=== PATIENT | male | born 1950 | race Caucasian/White ===

== ENCOUNTER 2024-07-21 15:27 | Emergency (ER) | payer MEDICARE, BC, SELFPAY ==
[2024-07-21 15:32] VITALS: BP 154/76; PULSE 81; RESP 19; TEMP 36.7; O2SAT 100
--- OUTSIDE RECORDS SUMMARY | 2024-07-21 16:17 | XMS_ITS | Clinical Summary ---
Author Organization [facility] Address Formerly [facility] [place] [address] Care Team Providers Care Surgical Appliance Fitter Name Role Phone Olayinka John MD Primary Care Provider [phone] Allergies No known active allergies Medications aspirin 81 MG tablet Take 1 tablet (81 mg total) by mouth daily. Active coenzyme Q-10 (CO Q-10) 100 MG capsule Take 1 capsule (100 mg total) by mouth daily. Active ALPRAZolam (XANAX) 0.25 MG tabletIndications:Anxie ty Take 1 tablet (0.25 mg total) by mouth 3 (three) times daily as needed for Sleep. 30 tablet 023 Active famotidine (PEPCID) 20 MG tablet Take 1 tablet (20 mg total) by mouth daily. 14 tablet 024 Active EPINEPHrine 0.3 MG/0.3ML injectionIndications:Al lergic reaction, subsequent encounter Inject 0.3 mLs (0.3 mg total) into the muscle as needed for Anaphylax is. 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 30 tablet 5 025 Active amLODIPine (NORVASC) 10 MG tabletIndications:Pure hypercholesterolemia TAKE 1 TABLET(10 MG) BY MOUTH DAILY 90 tablet 3 025 Active naproxen (NAPROSYN) 500 MG tabletIndications:Other chronic pain Take 1 tablet (500 mg total) by mouth 2 (two) times daily with meals. 60 tablet 1 025 Active semaglutide-weight management (WEGOVY) 1.7 mg/dose injection (PEN)Indications:Weight Loss Inject 1.7 mg into the skin once a week. Indicatio ns: Weight Loss 3 mL 3 025 Active oxyCODONE ER (OXYCONTIN) 60 MG 12 hr abuse-deterrent tabletIndications:Chron ic Pain Take 1 tablet (60 mg total) by mouth 3 (three) times daily. Indicatio ns: Chronic Pain 90 tablet 025 Active amLODIPine (NORVASC) 10 MG tabletIndications:Pure hypercholesterolemia TAKE 1 TABLET(10 MG) BY MOUTH DAILY 90 tablet 3 024 2024 Discontinued naproxen (NAPROSYN) 500 MG tabletIndications:Other chronic pain TAKE 1 TABLET(50 0 MG) BY MOUTH EVERY 12 HOURS 60 tablet 1 024 2024 Discontinued(R eorder) semaglutide-weight management (WEGOVY) 1.7 mg/dose injection (PEN)Indications:Weight Loss Inject 1.7 mg into the skin once a week. Indicatio ns: Weight Loss 3 mL 3 025 2024 Discontinued(R eorder) oxyCODONE ER (OXYCONTIN) 60 MG 12 hr abuse-deterrent tabletIndications:Chron ic Pain Take 1 tablet (60 mg total) by mouth 3 (three) times daily. Indicatio ns: Chronic Pain 90 tablet 025 2024 Discontinued(R eorder) azithromycin (ZITHROMAX Z-HARITHA) 250 MG tabletIndications:URI (upper respiratory infection) Take 2 tablets by mouth on day one then 1 daily for four days. 6 tablet 025 2024 Active Problems Problem Noted Date Diagnosed Date Arrhythmia 12/24/2021 Class 1 obesity due to exces s calories with serious comorbidity and body mass index (BMI) of 31.0 to 31.9 in adult 12/23/2021 Lumbar radiculopathy 09/10/2020 Lumbar facet arthropathy 06/22/2020 Status post total replacement of left hip 2019 BMI 35.0-35.9,adult 09/06/2017 Thyromegaly 12/28/2015 Primary osteoarthritis of left shoulder 06/11/19 16 Obstructive sleep apnea syndrome 05/15/2014 Insomnia 05/23/2013 Chronic pain 05/15/2012 Benign essential hypertension 04/06/2012 Hyperlipidemia 04/06/2012 Gastroesophageal reflux disease 02/15/2012 Depression 01/30/2012 Resolved Problems Problem Noted Date Diagnosed Date Resolved Date Screening for colon cancer 03/19/2024 1 05/25/2023 Encounter for colonoscopy du e to history of adenomatous colonic polyps 03/19/2024 03/25/2024 Encounters Date Type Department Care Team Description 07/15/2024 Telephone [facility] Internal [address] [address] Olayinka John MD Information 07/08/2024 [facility] Internal [address] [address] Olayinka John MD Refill Request 07/02/2024 [facility] Internal [address] [address] Olayinka John MD Prior Authorization (Osomeprazole magnesium 40mg DR capsules) 07/01/2024 [facility] Internal [address] [address] Olayinka John MD Refill Request 06/05/2024 [facility] Internal [address] [address] Olayinka John MD Prior Authorization ( oxyCODONE ER (OXYCONTIN) 60 MG 12 hr abuse-deterrent tablet ) 06/03/2024 Scan [facility] Scanned, [facility] 05/24/2024 Telephone [facility] Internal [address] [address] Olayinka John MD Lab Results 05/21/2024 1:20 PM CLINICAL STAFF ANESTHESIOLOGIST Office Visit [facility] Internal [address] [address] Olayinka John MD Hypertension; Hyperlipidemia; Obesity; GERD 05/21/2024 - 05/21/2024 11:59 PM CLINICAL STAFF ANESTHESIOLOGIST Hospital Encounter [facility] [address] [place] [address] Olayinka John MD Discharge Disposition: Home or Self Care (Routine Discharge) 05/21/2024 Travel 05/10/2024 Telephone [facility] Internal [address] [address] Olayinka John MD Forms (Paper Products Supervisor services department) 04/25/[address] [address] Olayinka John MD Medication Request from Last 3 Months Immunizations Name Administration Dates Next Due Fluzone High Dose (IIV, triv alent, 0.5mL) 02/20/2024 Fluzone High Dose - >Age 65 (Prefilled Syringe) 02/24/2021,02/20/2020,03/02/2019,2017,03/15/2017 Influenza (Generic) 02/20/2020,03/02/2019,2016 Influenza Adult (Generic) 03/04/2022,,02/20/2020,2018,03/15/2017 MODERNA COVID-19 BIVALENT (1 2+), MRNA, LNP-S, PF 03/04/2022 MODERNA COVID-19 (12+) MRNA, LNP-S, PF, 100 MCG/ 0.5 ML DOSE 03/04/2022,02/25/2021,07/01/2020,2020 PFIZER COVID-19 (12+) MRNA, LNP-S, PF, IZABELLA-SUCROSE, 30 MCG/0.3 ML (COMIRNATY) 02/20/2024 Pneumococcal (Pneumovax 23) 03/15/2018 Pneumococcal (Prevnar 13) 03/15/2017 Social History Tobacco Use Types Packs/Day Years Used Date Smoking Tobacco: Every Day Cigarettes 1 58.2 Started: 1965 Smokeless Tobacco: Never Tobacco Cessation:Ready to Q uit: No; Counseling Given: Yes Comments:Recommended smoking cessation as well as benefits of giving up smoking with patient; provider to careers counsellor Alcohol Use Standard Drinks/Week Comments Not Currently 3.3 (1 standard drin k = 0.6 oz pure alcohol) 2 beers a week // as of May 2024 has quit drinking AUDIT-C Answer Date Recorded Frequency of Alcohol Consumption Never 04/10/2019 Average Number of Drinks Not asked 019 Frequency of Binge Drinking Not asked 03/31 PHQ-2 Answer Date Recorded Patient Health Questionnaire-2 Score 0 05/21/2024 Sex and Gender Information Value Date Recorded Sex Assigned at Male 03/15/2018 10:58 AM CLINICAL STAFF ANESTHESIOLOGIST Legal Sex Male 7:04 PM CDT Gender Identity Male 03/15/2018 10:58 AM CLINICAL STAFF ANESTHESIOLOGIST Sexual Orientation Straight 03/15/2018 10 :58 AM CLINICAL STAFF ANESTHESIOLOGIST 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 Not on file Not on file Last Filed Vital Signs Vital Sign Reading Time Taken Comments Blood Pressure 152/76 05/21/2024 1:29 PM CLINICAL STAFF ANESTHESIOLOGIST Pulse 70 05/21/2024 1:29 PM CLINICAL STAFF ANESTHESIOLOGIST Temperature 37 C (98.6 F) 05/21/2024 1:29 PM CLINICAL STAFF ANESTHESIOLOGIST Respiratory Rate 16 05/21/2024 1:29 PM CLINICAL STAFF ANESTHESIOLOGIST Oxygen Saturation 95% 05/21/2024 1:29 PM CLINICAL STAFF ANESTHESIOLOGIST Inhaled Oxygen Concentration - - Weight 107.5 kg (237 lb 1.6 oz) 05/21/2024 1:29 PM CLINICAL STAFF ANESTHESIOLOGIST Height 185.4 cm (6' 1 ) 05/21/2024 1:29 PM CLINICAL STAFF ANESTHESIOLOGIST Body Mass Index 31.28 05/21/2024 1:29 PM CLINICAL STAFF ANESTHESIOLOGIST Plan of Treatment Upcoming Encounters Date Type Department Care Team (Late st Contact Info) Description 08/29/2024 1:30 PM CDT Hospital Encounter [facility] [place] [address] Shaun Frost MD [address] [address] 08/29/2024 1:30 PM CDT - 08/29/2024 2:00 PM CDT Surgery [facility] [address] Shaun Frost MD [address] [address] COLONOSCOPY 11/19/2024 1:20 PM CDT Office Visit [facility] - [address] [address] Olayinka John MD [address] [place] [address] Scheduled Procedures Name Priority Associated Diagnoses Date/Ti me COLONOSCOPY Screening for colon cancer Encounter for colonoscopy due to history of adenomatous colonic polyps 08/29/2024 1:30 PM CDT Health Maintenance Due Date Last Done Comments Annual Medicare Wellness Visit 09/15/2021 09/14/2020 COVID-19 Vaccine ( season) 2024 02/20/2024, 03/04/2022, 03/04/2022, Additional history exists DTaP, Tdap and Td Vaccines (1 - Tdap) 02/04/2025 Postponed from 1970 (Patient Refused) Zoster Vaccines (1 of 2) 02/04/2025 Pos tponed from 2001 (Patient Refused) Lung Cancer Screening 07/19/2025 07/19/2024 RSV Immunization or 60+ Years (1 - 1-dose 75+ series) 2026 Colorectal Cancer Screening Colonoscopy (10 Years) 05/20/2029 05/20/2019 Hepatitis C 02/04/2054 Postponed from 1969 (Patient Refused) Pneumococcal Vaccine: 65+ Years Completed 03/15/2018, 03/15/2017 Influenza Adult Completed 02/20/2024, 07/2021, 02/24/2021, Additional history exists PHQ-2 (Physician [place]) Completed 05/21/2024 AAA SCREENING Completed 07/19/2024, 06/30, 10/06/2020, Additional history exists Meningococcal B Vaccine Aged Out No l onger eligible based on patient's age to complete this topic Meningococcal Vaccine Aged Out No jackson wily eligible based on patient's age to complete this topic RSV Immunizations Under 20 Months Aged Out No longer eligible based on patient's age to complete this topic Procedures Procedure Name Priority Date/Time Associated Diagnosis Comments COLLECTION VENOUS BLOOD VENIPUNCTURE Routine 05/21/2024 2:24 PM CLINICAL STAFF ANESTHESIOLOGIST Benign essential hypertension Pure hypercholesterolemia LIPID PANEL Routine 05/21/2024 2:24 PM CLINICAL STAFF ANESTHESIOLOGIST Benign essential hypertension Pure hypercholesterolemia COMPREHENSIVE METABOLIC PANEL Routine 05/21/2024 2:24 PM CLINICAL STAFF ANESTHESIOLOGIST Benign essential hypertension Pure hypercholesterolemia CK (CPK) Routine 05/21/2024 2:24 PM CLINICAL STAFF ANESTHESIOLOGIST Benign essential hypertension Pure hypercholesterolemia US AORTA Routine 10/06/2020 3:32 PM CDT Screening for AAA (abdominal aortic aneurysm) COLONOSCOPY GENERIC (SCAN ORDER) Routine 05/20/2019 10:04 AM CLINICAL STAFF ANESTHESIOLOGIST from Last 3 Months or Most Recently Relevant to Health Maintenance Results * COMPREHENSIVE METABOLIC PANEL (05/21/2024 2:24 PM CLINICAL STAFF ANESTHESIOLOGIST) [facility] SODIUM S/P/B 142 136 - 145 MMOL/L 05/21/2024 7:39 PM CLINICAL STAFF ANESTHESIOLOGIST [facility] [place] POTASSIUM S/P/B 4.0 3.5 - 5.1 MMOL/L 05/21/2024 7:39 PM [facility] CHLORIDE S/P/B 105 98 - 107 MMOL/L 05/21/2024 7:39 PM [facility] CO2 26.5 21 - 32 MMOL/L 05/21/2024 7:39 PM [facility] GLUCOSE 92 70 - 99 MG/DL 05/21/2024 7:39 PM [facility] BUN 12 7 - 18 MG/DL 05/21/2024 7:39 PM [facility] CREATININE S/P/B 0.75 0.70 - 1.30 MG/DL 05/21/2024 7:39 PM [facility] CALCIUM S/P/B 9.1 8.4 - 10.5 MG/DL 05/21/2024 7:39 PM [facility] BILIRUBIN TOTAL S/P/B 0.4 0.2 - 1.0 MG/DL 05/21/2024 7:39 PM [facility] ALKALINE PHOSPHATASE S/P/B 113 45 - 115 U/L 05/21/2024 7:39 PM [facility] AST 15 15 - 37 U/L 05/21/2024 7:39 PM [facility] ALT 22 16 - 63 U/L 05/21/2024 7:39 PM [facility] TOTAL PROTEIN S/P/B 6.8 6.4 - 8.2 G/DL 05/21/2024 7:39 PM [facility] ALBUMIN S/P/B 4.0 3.4 - 5.0 G/DL 05/21/2024 7:39 PM [facility] ANION GAP 10.5 5 - 15 MMOL/L 05/21/2024 7:39 PM [facility] Comment:REFERENCE RANGE NOT ESTABLISHED OSMOLALITY (CALC) 293 MOSM/KG 025 7:39 PM CLINICAL STAFF ANESTHESIOLOGIST [facility] Comment:REFERENCE RANGE NOT ESTABLISHED GFR ESTIMATE >90 >90 ML/MIN/1. 73 M2 05/21/2024 7:39 PM CLINICAL STAFF ANESTHESIOLOGIST [facility] GFR NOTES GFR REFERENCE S: 05/21/2024 7:39 PM CLINICAL STAFF ANESTHESIOLOGIST [facility] Comment: THE ESTIMATED GFR IS CALCULATED USING THE 2020 CKD-EPI EQUATION. THE FOLLOWING CATEGORIES FOR GRADING RENAL FUNCTION ARE RECOMMENDED BY THE INTERNATIONAL SOCIETY OF NEPHROLOGY (KDIGO 2012 CLINICAL PRACTICE GUIDELINE). G1,NORMAL OR HIGH: >89 ml/min/1.73 m2 G2,MILDLY DECREASED: 60-89 ml/min/1.73 m2 G3A,MILDLY TO MODERATELY DECREASED: 45-59 ml/min/1.73 m2 G3B,MODERATELY TO SEVERELY DECREASED: 30-44 ml/min/1.73 m2 G4,SEVERELY DECREASED: 15-29 ml/min/1.73 m2 G5,KIDNEY FAILURE: <15 ml/min/1.73 m2 05/21/2024 2:24 PM CLINICAL STAFF ANESTHESIOLOGIST us Olayinka John MD LABORATORY Final Result [facility] [address] [place] [address], * (ABNORMAL) LIPID PANEL (05/21/2024 2:24 PM CLINICAL STAFF ANESTHESIOLOGIST) CHOLESTEROL 231(H) <200 MG/DL 05/21/2024 7:39 PM CLINICAL STAFF ANESTHESIOLOGIST [facility] TRIGLYCERIDES 125 <150 MG/DL 05/21/2024 7:39 PM [facility] HDL 48 >40 MG/DL 05/21/2024 7:39 PM [facility] LDL-C 158(H) <100 MG/DL 05/21/2024 7:39 PM CLINICAL STAFF ANESTHESIOLOGIST [facility] VLDL CALCULATION 25 5 - 28 MG/DL 05/21/2024 7:39 PM [facility] CHOL/HDL RATIO 4.8(H) 0.0 - 4.0 05/21/2024 7:39 PM CLINICAL STAFF ANESTHESIOLOGIST [facility] LDL/HDL 3.3(H) 0.41 - 2.13 05/21/2024 7:39 PM CLINICAL STAFF ANESTHESIOLOGIST [facility] NON HDL CHOLESTEROL 183(H) <140 MG/DL 05/21/2024 7:39 PM CLINICAL STAFF ANESTHESIOLOGIST [facility] 05/21/2024 2:24 PM CLINICAL STAFF ANESTHESIOLOGIST Olayinka John MD LABORATORY Final Result [facility] [address] [place] [address], [place] [phone] * CK (CPK) (05/21/2024 2:24 PM CLINICAL STAFF ANESTHESIOLOGIST) CPK 86 39 - 308 U/L 05/22/2024 5:39 PM CLINICAL STAFF ANESTHESIOLOGIST [facility] 05/21/2024 2:24 PM CLINICAL STAFF ANESTHESIOLOGIST Olayinka John MD LABORATORY Final Result [facility] [address] [place] [address], [place] [phone] [id number] * COLONOSCOPY (05/20/2019 10:04 AM CLINICAL STAFF ANESTHESIOLOGIST) us Documents Scanned SCANNING Final Result from Last 3 Months or Most Recently Relevant to Health Maintenance Insurance MEDICARE [facility] Care Teams Surgical Appliance Fitter Relationship Specialty Start Date End Date Olayinka John MD [address] [place] [address] PCP - General INTERNAL MEDICINE 06/15/17
--- OUTSIDE RECORDS SUMMARY | 2024-07-21 16:17 | XMS_ITS | Referral Summary ---
Author Organization [facility] Address [address] [place] [address] Care Team Providers Care Camp Cook Name Role Phone Olayinka John MD Primary Care Provider Martha Masters MD Unavailable Encounters Date Type Department Care Team Description 07/19/2024 9:37 PM CDT - 07/20/2024 12:17 AM CDT Emergency [facility] Emergency Department [address] [place] [id number] Postoperative complication of skin involving drainage from surgical wound (Primary Dx) Discharge Disposition: Discharge to home or self care from Last 3 Months Allergies No known active allergies Medications OXYCONTIN 60 mg tablet,oral only,ext.rel.12 hr Take 1 tablet (60 mg total) by mouth as needed As needed, once every couple of days 0 9 Active aspirin 81 mg enteric coated tablet Take 1 tablet (81 mg total) by mouth daily Active amLODIPine (NORVASC) 10 mg tablet Take 1 tablet (10 mg total) by mouth daily Active esomeprazole DR (NexIUM) 40 mg capsule Take 1 capsule (40 mg total) by mouth daily before breakfast Active acetaminophen (TYLENOL) 325 mg tabletIndicatio ns:Fever,Pain Take 2 tablets (650 mg total) by mouth every 4 (four) hours as needed for pain 10 tablet 2 Active coenzyme Q10 100 mg capsule Take 1 capsule (100 mg total) by mouth daily Active DULoxetine DR (CYMBALTA) 60 mg capsule Take 1 capsule (60 mg total) by mouth daily Active naproxen (NAPROSYN) 500 mg tablet Take 1 tablet (500 mg total) by mouth 2 (two) times a day with meals Active gabapentin (NEURONTIN) 300 mg capsule Take 1 capsule (300 mg total) by mouth daily Active Active Problems Problem Noted Date Diagnosed Date Tinnitus of both ears 09/12/2023 Bilateral impacted cerumen 09/12/2023 Sensorineural hearing loss (SNHL) of both ears 0 09/12/2023 Arrhythmia 12/24/2021 Status post total replacement of left hip 2019 Social History Tobacco Use Types Packs/Day Years Used Date Smoking Tobacco: Former Cigarettes 0.8 40 Tobacco Cessation:Counseling Given: Not Answered Alcohol Use Standard Drinks/Week Comments Not Currently 0 (1 standard drink = 0.6 oz pur e alcohol) AUDIT-C Answer Date Recorded Q1: How often do you have a drink containing alc ohol? 2-4 times a month 06/30/2022 Q2: How many drinks containi ng alcohol do you have on a typical day when you are drinking? 1 or 2 06/30/2022 Q3: How often do you have si x or more drinks on one occasion? Never 06/30/2022 Personal Safety Answer Date Recorded Have you ever been in or are you currently in a harmful physical or emotional relationship or is someone making you feel afraid or unsafe? Denies 07/19/2024 Sex and Gender Information Value Date Recorded Sex Assigned at Not on file Legal Sex Male 2:24 AM [employer] Gender Identity Not on file Sexual Orientation Not on file Occupation Industry Job Start Date Job End Date retired Not on file Not on file Not on file Last Filed Vital Signs Vital Sign Reading Time Taken Comments Blood Pressure 116/74 07/19/2024 11:50 PM CDT Pulse 73 07/19/2024 11:50 PM CDT Temperature 36.7 C (98.1 F) 07/19/2024 7:57 PM CDT Respiratory Rate 16 07/19/2024 11:50 PM CDT Oxygen Saturation 95% 07/19/2024 11:50 PM CDT Inhaled Oxygen Concentration - - Weight 104.3 kg (230 lb) 07/19/2024 7:57 PM CDT Height 185.4 cm (6' 1 ) 07/19/2024 7:57 PM CDT Body Mass Index 30.34 07/19/2024 7:57 PM CDT Plan of Treatment Not on file Medical Devices Implanted 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'S Furnishings Device Identifier Shelf Expiration Date Model / Serial / Lot [employer] Ernie Precision 50cm Trial Linear Straight Tip Preloaded Stylet .014in Sc-2218-50e - [id number] - [id number] Implanted:Qty: 1 on 10/11/2021 by Martha Masters MD at [facility] [place] Stimulator Back [employer] Ernie 08/03/2023 SC-2218-5 0E / [id number] / Description:[employer] C LINEAR ST 70 cm 8 CONTACT TRIAL LEAD KIT; IMPLANT #1; T12-L1 INSERTION LEVEL T7-8 LEAD IMPLANT LEVEL [employer] Ernie Precision 50cm Trial Linear Straight Tip Preloaded Stylet .014in Sc-2218-50e - [id number] - [id number] Implanted:Qty: 1 on 10/11/2021 by Martha Masters MD at [facility] [place] Stimulator Back [employer] Ernie 12/11/2021 SC-2218-5 0E / [id number] / Description:[employer] C LINEAR ST 70 cm 8 CONTACT TRIAL LEAD KIT; IMPLANT #2; T12-L1 INSERTION LEVEL T7-8 LEAD IMPLANT LEVEL [employer] Ernie Precision 50cm Linear Straight Tip Preloaded Enhanced Stylet Sc-2218-50 - [id number] - [id number] Implanted:Qty: 1 on 12/24/2021 by Martha Masters MD at [facility] [employer] Ernie 05/26/2023 SC-2218-5 0 / [id number] / [id number] [employer] Ernie Precision 50cm Linear Straight Tip Preloaded Enhanced Stylet Sc-2218-50 - [id number] - [id number] Implanted:Qty: 1 on 12/24/2021 by Martha Masters MD at [facility] [employer] Ernie 05/11/2023 SC-2218-5 0 / [id number] / [id number] [employer] Ernie Clik X [place] Lead Spinal Cord Stimulation Systems [id number]-4318 - [id number] Implanted:Qty: 1 on 12/24/2021 by Martha Masters MD at [facility] [employer] Ernie 10/14/2022 [id number]-[id number] / / [id number] [employer] Ernie Kit Pulse Generator Wavewriter Alpha 16 Thk10.7mm [id number] - [id number] - [id number] Implanted:Qty: 1 on 12/24/2021 by Martha Masters MD at [facility] Neuro- 09/30/2023 [id number] / [id number] / [id number] Description:NO CHARGE, IN ARGE SYSTEM KIT Procedures Procedure Name Priority Date/Time Associated Diagnosis Comments CT RECON THORACIC AND LUMBAR SPINE WO CONTRAST ED 07/19/2024 10:[address] CHEST ABDOMEN PELVIS W CONTRAST ED 07/19/2024 10:38 PM CDT EGFR STAT 07/19/2024 9:58 PM CDT DIFFERENTIAL AUTO STAT 07/19/2024 9:5 8 PM CDT LACTATE STAT 07/19/2024 9:58 PM CDT COMPREHENSIVE METABOLIC PANEL STAT 07/19/2024 9:58 PM CDT CBC WITH AUTO DIFFERENTIAL STAT 07/19/2024 9:58 PM CDT PSA SCREEN Routine 09/12/2016 11:14 AM CDT from Last 3 Months or Most Recently Relevant to Health Maintenance Results * CT Recon Thoracic and Lumbar Spine WO Contrast (C) (07/19/2024 10:38 PM CDT) Anatomical Region Laterality Modality Spine N/A Computed Tomogra phy 07/19/2024 10:5 8 PM CDT Narrative 07/19/2024 11:29 PM CDT EXAM DESCRIPTION: CT RECON THORACIC AND LUMBAR SPINE WO CONTRAST (C); CT CHEST ABDOMEN PELVIS W CONTRAST REASON FOR STUDY: Wound leaking after spine stimulator placement yesterday PT AMBULATORY TO TRIAGE STATES HE HAD A PAIN STIMULATOR PLACED TO RIGHT LOWER BACK YESTERDAY. PT STATES IT HAS BEEN LEAKING FLUID. NO OBVIOUS DRAINAGE IN TRIAGE. DERMABOND INTAKE. PT STATES HE DOES HAVE A HEADACHE. TECHNIQUE: Contiguous transaxial CT images of the chest, abdomen and pelvis are obtained following uneventful intravenous administration of 100 mL Omnipaque 350. Coronal and sagittal reconstructions were generated and reviewed. Images stored on PACS. Automated exposure control was used as a dose optimization technique for this examination. CT reconstruction scan of the thoracolumbar spine were generated from the source CT images of the chest, abdomen and pelvis following uneventful intravenous administration of 100 mL Omnipaque 350.. Reconstructed axial, coronal and sagittal MPR images reviewed. Images stored on PACS. Automated exposure control was used as a dose optimization technique for this examination. CONTRAST TYPE/DOSE: 100mL of IOVERSOL 350 MG IODINE/ML INTRAVENOUS SYRINGE injected COMPARISON: 05/24/2023, 01/12/2016, 12/13/2015 FINDINGS: Chest, abdomen, and pelvis as well as thoracic and lumbar spine: No CT evidence of pulmonary embolism. No aortic aneurysm or aortic dissection. No supraclavicular, axillary, mediastinal, or hilar lymphadenopathy. The esophagus is within normal limits. Heart size is normal. No pericardial effusion. No pneumomediastinum or mediastinal hematoma. There is no pleural effusion or pneumothorax. There is mild upper lobe predominant bilateral pulmonary emphysema with scattered regions of mild bilateral pulmonary parenchymal scarring. Mild focal bronchiolectasis in the right lower lobe is present. Mild bilateral bronchial wall thickening. The liver is normal in size. No focal hepatic lesions. Portal veins are patent. No intra or extrahepatic biliary ductal dilatation. The gallbladder is normal. The spleen and pancreas are unremarkable. Mild thickening of the left adrenal gland which maintains its adreniform shape. Right adrenal gland is normal. No discrete focal renal lesions. No hydronephrosis or hydroureter. No calculi in the urinary tract. The urinary bladder is within normal limits. Prostate gland calcifications are present which is normal in size. The stomach is normal. The small bowel and colon are normal in course and caliber with no evidence of obstruction or inflammation. No CT evidence of acute appendicitis. No free fluid or free air. No lymphadenopathy. Atherosclerotic calcifications abdominal aorta and its branches which are patent. Bone windows demonstrate no acute fractures or aggressive osseous lesions. Healed and nonunited rib fractures. Bilateral total hip arthroplasties are in near atomic position but are incompletely imaged. Lumbar spine posterior decompression with mild lumbar kyphosis. Mild dextrocurvature of the lower thoracic spine and mild levocurvature of the lumbar spine. Severe multilevel lumbar spine degenerative disc disease. There is fusion of L1 and L2 vertebral bodies. Mild multilevel thoracic spine degenerative disc disease. A spinal stimulator generator box is present within the right gluteal subcutaneous tissues with the lead extending to the thoracic central canal and the tip terminating at the level of T7. Tiny locules of gas within the central canal due to recent intervention. Punctate radiodense structures within the subcutaneous tissues of the back and adjacent to the spinal stimulator lead and generator box may reflect antibiotic impregnated beads. In addition, a catheter/lead is present along the right anterior abdominal wall extending along the right lateral abdominal wall musculature and extending to the right gluteal flank with additional catheter extending along the right lower back subcutaneous tissues. Several locules of soft tissue gas adjacent to the spinal stimulator lead are present along with small volume of non loculated fluid which could be postprocedural in etiology. In addition, there is a loculated rim enhancing and gas containing fluid collection within the right upper quadrant ventral abdominal wall with irregular shape measuring approximately 7.8 x 2.2 x 7.2 cm in largest dimensions. Adjacent subcutaneous fat stranding and skin thickening along the right upper quadrant ventral abdominal wall is present which can be seen with cellulitis in the appropriate clinical setting or reactive edema and inflammation. Additional postsurgical locules of soft tissue gas extends along the left posterior chest wall. IMPRESSION: 1. Spinal stimulator generator box within the right gluteal subcutaneous tissues with the lead extending to the thoracic central canal and the tip terminating at the level of T7. 2. Catheter/lead along the right anterior abdominal wall extending along the right lateral abdominal wall musculature and extending to the right gluteal flank with additional catheter extending along the right lower back subcutaneous tissues. Several locules of soft tissue gas adjacent to the spinal stimulator lead and generator box along with small volume of non loculated fluid which could be postprocedural in etiology. 3. Loculated rim enhancing and gas containing fluid collection within the right upper quadrant ventral abdominal wall with irregular shape measuring approximately 7.8 x 2.2 x 7.2 cm. Adjacent subcutaneous fat stranding and skin thickening along the right upper quadrant ventral abdominal wall which can be seen with cellulitis in the appropriate clinical setting or reactive edema and inflammation. Clinical correlation is recommended. THIS IS AN ELECTRONICALLY VERIFIED FINAL REPORT 07/19/2024 11:29 PM - Electronically signed by Bhupendra Truong M.D. AT: AT Report ID: [id number] Reading Location: [place] [id number] Procedure Note Bhupendra Truong MD - 07/19/2024 EXAM DESCRIPTION: CT RECON THORACIC AND LUMBAR SPINE WO CONTRAST (C); CTCHEST ABDOMEN PELVIS W CONTRAST REASON FOR STUDY: Wound leaking after spine stimulator placement yesterday PT AMBULATORY TO TRIAGE STATES [facility] PT STATES IT HAS BEEN LEAKING FLUID. NO OBVIOUS DRAINAGEIN TRIAGE. DERMABOND INTAKE. PT STATES HE DOES HAVE A HEADACHE. TECHNIQUE: Contiguous transaxial CT images of the chest, abdomen andpelvis are obtained following uneventful intravenous administration of 100 mL Omnipaque 350. Coronal and sagittal reconstructions were generated and reviewed. Images stored on PACS. Automated exposure control was used as adose optimization technique for this examination. CT reconstruction scan of the thoracolumbar spine were generated from the source CT images of the chest, abdomen and pelvis following uneventful intravenous administration of 100 mL Omnipaque 350.. Reconstructed axial, coronal and sagittal MPR images reviewed. Images stored on PACS.Automated exposure control was used as a dose optimization technique for this examination. CONTRAST TYPE/DOSE: 100mL of IOVERSOL 350 MG IODINE/ML INTRAVENOUS SYRINGE injected COMPARISON: 05/24/2023, 01/12/2016, 12/13/2015 FINDINGS: Chest, abdomen, and pelvis as well as thoracic and lumbar spine: No CT evidence of pulmonary embolism. No aortic aneurysm or aorticdissection. No supraclavicular, axillary, mediastinal, or hilar lymphadenopathy. The esophagus is within normal limits. Heart size is normal. No pericardial effusion. No pneumomediastinum or mediastinal hematoma. There is no pleural effusion or pneumothorax. There is mild upper lobe predominant bilateral pulmonary emphysema with scattered regions of mild bilateral pulmonary parenchymal scarring. Mild focal bronchiolectasis in the right lower lobe is present. Mild bilateral bronchial wall thickening. The liver is normal in size. No focal hepatic lesions. Portal veins are patent. No intra or extrahepatic biliary ductal dilatation. Thegallbladder is normal. The spleen and pancreas are unremarkable. Mild thickening ofthe left adrenal gland which maintains its adreniform shape. Right adrenalgland is normal. No discrete focal renal lesions. No hydronephrosis or hydroureter. No calculi in the urinary tract. The urinary bladder is within normallimits. Prostate gland calcifications are present which is normal in size. The stomach is normal. The small bowel and colon are normal in course and caliber with no evidence of obstruction or inflammation. No CT evidenceof acute appendicitis. No free fluid or free air. No lymphadenopathy. Atherosclerotic calcifications abdominal aorta and its branches which are patent. Bone windows demonstrate no acute fractures or aggressive osseous lesions. Healed and nonunited rib fractures. Bilateral total hip arthroplastiesare in near atomic position but are incompletely imaged. Lumbar spine posterior decompression with mild lumbar kyphosis. Mild dextrocurvature of the lower thoracic spine and mild levocurvature of the lumbar spine. Severe multilevel lumbar spine degenerative disc disease. There is fusion of L1 and L2 vertebral bodies. Mild multilevel thoracicspine degenerative disc disease. A spinal stimulator generator box is present within the right gluteal subcutaneous tissues with the lead extending to the thoracic central [place] the tip terminating at the level of T7. Tiny locules of gas within the central canal due to recent intervention. Punctate radiodense structures within the subcutaneous tissues of the back and adjacent to the spinal stimulator lead and generator box may reflect antibiotic impregnatedbeads. In addition, a catheter/lead is present along the right anterior abdominal wall extending along the right lateral abdominal wall musculature and extending to the right gluteal flank with additional catheter extendingalong the right lower back subcutaneous tissues. Several locules of soft tissuegas adjacent to the spinal stimulator lead are present along with small volumeof non loculated fluid which could be postprocedural in etiology. In addition, there is a loculated rim enhancing and gas containing fluid collection within the right upper quadrant ventral abdominal wall with irregular shape measuring approximately 7.8 x 2.2 x 7.2 cm in largest dimensions. Adjacent subcutaneous fat stranding and skin thickening alongthe right upper quadrant ventral abdominal wall is present which can be seenwith cellulitis in the appropriate clinical setting or reactive edema and inflammation. Additional postsurgical locules of soft tissue gas extends along the left posterior chest wall. IMPRESSION: 1. Spinal stimulator generator box within the right gluteal subcutaneous tissues with the lead extending to the thoracic central [place] the tip terminating at the level of T7. 2. Catheter/lead along the right anterior abdominal wall extending alongthe right lateral abdominal wall musculature and extending to the rightgluteal flank with additional catheter extending along the right lower back subcutaneous tissues. Several locules of soft tissue gas adjacent to the spinal stimulator lead and generator box along with small volume of non loculated fluid which could be postprocedural in etiology. 3. Loculated rim enhancing and gas containing fluid collection within the right upper quadrant ventral abdominal wall with irregular shape measuring approximately 7.8 x 2.2 x 7.2 cm. Adjacent subcutaneous fat stranding andskin thickening along the right upper quadrant ventral abdominal wall which canbe seen with cellulitis in the appropriate clinical setting or reactive edemaand inflammation. Clinical correlation is recommended. THIS IS AN ELECTRONICALLY VERIFIED FINAL REPORT 07/19/2024 11:29 PM - Electronically signed by Bhupendra Truong M.D. AT: AT Report ID: [id number] Reading Location: [id number] [facility] IMG CT PROCEDURES [place] [facility] Result * CT Chest Abdomen Pelvis W Contrast (07/19/2024 10:38 PM CDT) Anatomical Region Laterality Modality Body N/A Computed Tomogra phy 07/19/2024 10:5 8 PM CDT Narrative 07/19/2024 11:29 PM CDT EXAM DESCRIPTION: CT RECON THORACIC AND LUMBAR SPINE WO CONTRAST (C); CT CHEST ABDOMEN PELVIS W CONTRAST REASON FOR STUDY: Wound leaking after spine stimulator placement yesterday PT AMBULATORY TO TRIAGE STATES HE HAD A PAIN STIMULATOR PLACED TO RIGHT LOWER BACK YESTERDAY. PT STATES IT HAS BEEN LEAKING FLUID. NO OBVIOUS DRAINAGE IN TRIAGE. DERMABOND INTAKE. PT STATES HE DOES HAVE A HEADACHE. TECHNIQUE: Contiguous transaxial CT images of the chest, abdomen and pelvis are obtained following uneventful intravenous administration of 100 mL Omnipaque 350. Coronal and sagittal reconstructions were generated and reviewed. Images stored on PACS. Automated exposure control was used as a dose optimization technique for this examination. CT reconstruction scan of the thoracolumbar spine were generated from the source CT images of the chest, abdomen and pelvis following uneventful intravenous administration of 100 mL Omnipaque 350.. Reconstructed axial, coronal and sagittal MPR images reviewed. Images stored on PACS. Automated exposure control was used as a dose optimization technique for this examination. CONTRAST TYPE/DOSE: 100mL of IOVERSOL 350 MG IODINE/ML INTRAVENOUS SYRINGE injected COMPARISON: 05/24/2023, 01/12/2016, 12/13/2015 FINDINGS: Chest, abdomen, and pelvis as well as thoracic and lumbar spine: No CT evidence of pulmonary embolism. No aortic aneurysm or aortic dissection. No supraclavicular, axillary, mediastinal, or hilar lymphadenopathy. The esophagus is within normal limits. Heart size is normal. No pericardial effusion. No pneumomediastinum or mediastinal hematoma. There is no pleural effusion or pneumothorax. There is mild upper lobe predominant bilateral pulmonary emphysema with scattered regions of mild bilateral pulmonary parenchymal scarring. Mild focal bronchiolectasis in the right lower lobe is present. Mild bilateral bronchial wall thickening. The liver is normal in size. No focal hepatic lesions. Portal veins are patent. No intra or extrahepatic biliary ductal dilatation. The gallbladder is normal. The spleen and pancreas are unremarkable. Mild thickening of the left adrenal gland which maintains its adreniform shape. Right adrenal gland is normal. No discrete focal renal lesions. No hydronephrosis or hydroureter. No calculi in the urinary tract. The urinary bladder is within normal limits. Prostate gland calcifications are present which is normal in size. The stomach is normal. The small bowel and colon are normal in course and caliber with no evidence of obstruction or inflammation. No CT evidence of acute appendicitis. No free fluid or free air. No lymphadenopathy. Atherosclerotic calcifications abdominal aorta and its branches which are patent. Bone windows demonstrate no acute fractures or aggressive osseous lesions. Healed and nonunited rib fractures. Bilateral total hip arthroplasties are in near atomic position but are incompletely imaged. Lumbar spine posterior decompression with mild lumbar kyphosis. Mild dextrocurvature of the lower thoracic spine and mild levocurvature of the lumbar spine. Severe multilevel lumbar spine degenerative disc disease. There is fusion of L1 and L2 vertebral bodies. Mild multilevel thoracic spine degenerative disc disease. A spinal stimulator generator box is present within the right gluteal subcutaneous tissues with the lead extending to the thoracic central canal and the tip terminating at the level of T7. Tiny locules of gas within the central canal due to recent intervention. Punctate radiodense structures within the subcutaneous tissues of the back and adjacent to the spinal stimulator lead and generator box may reflect antibiotic impregnated beads. In addition, a catheter/lead is present along the right anterior abdominal wall extending along the right lateral abdominal wall musculature and extending to the right gluteal flank with additional catheter extending along the right lower back subcutaneous tissues. Several locules of soft tissue gas adjacent to the spinal stimulator lead are present along with small volume of non loculated fluid which could be postprocedural in etiology. In addition, there is a loculated rim enhancing and gas containing fluid collection within the right upper quadrant ventral abdominal wall with irregular shape measuring approximately 7.8 x 2.2 x 7.2 cm in largest dimensions. Adjacent subcutaneous fat stranding and skin thickening along the right upper quadrant ventral abdominal wall is present which can be seen with cellulitis in the appropriate clinical setting or reactive edema and inflammation. Additional postsurgical locules of soft tissue gas extends along the left posterior chest wall. IMPRESSION: 1. Spinal stimulator generator box within the right gluteal subcutaneous tissues with the lead extending to the thoracic central canal and the tip terminating at the level of T7. 2. Catheter/lead along the right anterior abdominal wall extending along the right lateral abdominal wall musculature and extending to the right gluteal flank with additional catheter extending along the right lower back subcutaneous tissues. Several locules of soft tissue gas adjacent to the spinal stimulator lead and generator box along with small volume of non loculated fluid which could be postprocedural in etiology. 3. Loculated rim enhancing and gas containing fluid collection within the right upper quadrant ventral abdominal wall with irregular shape measuring approximately 7.8 x 2.2 x 7.2 cm. Adjacent subcutaneous fat stranding and skin thickening along the right upper quadrant ventral abdominal wall which can be seen with cellulitis in the appropriate clinical setting or reactive edema and inflammation. Clinical correlation is recommended. THIS IS AN ELECTRONICALLY VERIFIED FINAL REPORT 07/19/2024 11:29 PM - Electronically signed by Bhupendra Truong M.D. AT: AT Report ID: [id number] Reading Location: [id number] Procedure Note Bhupendra Truong MD - 07/19/2024 EXAM DESCRIPTION: CT RECON THORACIC AND LUMBAR SPINE WO CONTRAST (C); CTCHEST ABDOMEN PELVIS W CONTRAST REASON FOR STUDY: Wound leaking after spine stimulator placement yesterday PT AMBULATORY TO TRIAGE STATES HE HAD A PAIN STIMULATOR PLACED TO RIGHTLOWER BACK YESTERDAY. PT STATES IT HAS BEEN LEAKING FLUID. NO OBVIOUS DRAINAGEIN TRIAGE. DERMABOND INTAKE. PT STATES HE DOES HAVE A HEADACHE. TECHNIQUE: Contiguous transaxial CT images of the chest, abdomen andpelvis are obtained following uneventful intravenous administration of 100 mL Omnipaque 350. Coronal and sagittal reconstructions were generated and reviewed. Images stored on PACS. Automated exposure control was used as adose optimization technique for this examination. CT reconstruction scan of the thoracolumbar spine were generated from the source CT images of the chest, abdomen and pelvis following uneventful intravenous administration of 100 mL Omnipaque 350.. Reconstructed axial, coronal and sagittal MPR images reviewed. Images stored on PACS.Automated exposure control was used as a dose optimization technique for this examination. CONTRAST TYPE/DOSE: 100mL of IOVERSOL 350 MG IODINE/ML INTRAVENOUS SYRINGE injected COMPARISON: 05/24/2023, 01/12/2016, 12/13/2015 FINDINGS: Chest, abdomen, and pelvis as well as thoracic and lumbar spine: No CT evidence of pulmonary embolism. No aortic aneurysm or aorticdissection. No supraclavicular, axillary, mediastinal, or hilar lymphadenopathy. The esophagus is within normal limits. Heart size is normal. No pericardial effusion. No pneumomediastinum or mediastinal hematoma. There is no pleural effusion or pneumothorax. There is mild upper lobe predominant bilateral pulmonary emphysema with scattered regions of mild bilateral pulmonary parenchymal scarring. Mild focal bronchiolectasis in the right lower lobe is present. Mild bilateral bronchial wall thickening. The liver is normal in size. No focal hepatic lesions. Portal veins are patent. No intra or extrahepatic biliary ductal dilatation. Thegallbladder is normal. The spleen and pancreas are unremarkable. Mild thickening ofthe left adrenal gland which maintains its adreniform shape. Right adrenalgland is normal. No discrete focal renal lesions. No hydronephrosis or hydroureter. No calculi in the urinary tract. The urinary bladder is within normallimits. Prostate gland calcifications are present which is normal in size. The stomach is normal. The small bowel and colon are normal in course and caliber with no evidence of obstruction or inflammation. No CT evidenceof acute appendicitis. No free fluid or free air. No lymphadenopathy. Atherosclerotic calcifications abdominal aorta and its branches which are patent. Bone windows demonstrate no acute fractures or aggressive osseous lesions. Healed and nonunited rib fractures. Bilateral total hip arthroplastiesare in near atomic position but are incompletely imaged. Lumbar spine posterior decompression with mild lumbar kyphosis. Mild dextrocurvature of the lower thoracic spine and mild levocurvature of the lumbar spine. Severe multilevel lumbar spine degenerative disc disease. There is fusion of L1 and L2 vertebral bodies. Mild multilevel thoracicspine degenerative disc disease. A spinal stimulator generator box is present within the right gluteal subcutaneous tissues with the lead extending to the thoracic central canaland the tip terminating at the level of T7. Tiny locules of gas within the central canal due to recent intervention. Punctate radiodense structures within the subcutaneous tissues of the back and adjacent to the spinal stimulator lead and generator box may reflect antibiotic impregnatedbeads. In addition, a catheter/lead is present along the right anterior abdominal wall extending along the right lateral abdominal wall musculature and extending to the right gluteal flank with additional catheter extendingalong the right lower back subcutaneous tissues. Several locules of soft tissuegas adjacent to the spinal stimulator lead are present along with small volumeof non loculated fluid which could be postprocedural in etiology. In addition, there is a loculated rim enhancing and gas containing fluid collection within the right upper quadrant ventral abdominal wall with irregular shape measuring approximately 7.8 x 2.2 x 7.2 cm in largest dimensions. Adjacent subcutaneous fat stranding and skin thickening alongthe right upper quadrant ventral abdominal wall is present which can be seenwith cellulitis in the appropriate clinical setting or reactive edema and inflammation. Additional postsurgical locules of soft tissue gas extends along the left posterior chest wall. IMPRESSION: 1. Spinal stimulator generator box within the right gluteal subcutaneous tissues with the lead extending to the thoracic central canaland the tip terminating at the level of T7. 2. Catheter/lead along the right anterior abdominal wall extending alongthe right lateral abdominal wall musculature and extending to the rightgluteal flank with additional catheter extending along the right lower back subcutaneous tissues. Several locules of soft tissue gas adjacent to the spinal stimulator lead and generator box along with small volume of non loculated fluid which could be postprocedural in etiology. 3. Loculated rim enhancing and gas containing fluid collection within the right upper quadrant ventral abdominal wall with irregular shape measuring approximately 7.8 x 2.2 x 7.2 cm. Adjacent subcutaneous fat stranding andskin thickening along the right upper quadrant ventral abdominal wall which canbe seen with cellulitis in the appropriate clinical setting or reactive edemaand inflammation. Clinical correlation is recommended. THIS IS AN ELECTRONICALLY VERIFIED FINAL REPORT 07/19/2024 11:29 PM - Electronically signed by Bhupendra Truong M.D. AT: AT Report ID: [id number] Reading Location: [id number] Gladys DELUNA IMG CT PROCEDURES Park l Result * Lactate (07/19/2024 9:58 PM CDT) Lactate 1.4 0.7 - 2.0 mmol/L Comment:Testing performed by : [facility], [address] [place] [address]., [id number] Blood 07/19/2024 9:58 PM CDT 07/19/2024 10:00 PM CDT Gladys DELUNA LAB BLOOD ORDERABLES F inal Result [facility] [facility] Department [place] [address] * eGFR (07/19/2024 9:58 PM CDT) eGFR >90 >=60 mL/min/1. 73 m2 Comment: Interpretive Data Reference Interval Normal >/= 90 mL/min/1.73m2 Mildly decreased* 60 - 89 mL/min/1.73m2 Mildly to moderately decreased 45 - 59 mL/min/1.73m2 Moderately to severely decreased 30 - 44 mL/min/1.73m2 Severely decreased 15 - 29 mL/min/1.73m2 Kidney Failure < 15 mL/min/1.73m2 *Relative to young adult level Estimated glomerular filtration rate is determined by the 2020 CKD-EPI equation recommended by the National Kidney Foundation (A Unifying Approach to GFR Estimation: Recommendations of the NKF-ASK Task Force on Reassessing the Inclusion of Race in Diagnosing Kidney Disease, JASN 2020). The CKD-EPI equation should not be used for patients with unstable renal function and has not been validated in children and those over 70. Current interpretive data was last reviewed 2021. Testing performed by: [address] [address] Blood 07/19/2024 9:58 PM CDT 07/19/2024 10:00 PM CDT Gladys DELUNA LAB BLOOD ORDERABLES F inal Result [place] [id number] [facility] Department [place] [address] * (ABNORMAL) Differential, auto (07/19/2024 9:58 PM CDT) Neutrophil abs 8.3(H) 1.5 - 6.5 K/cumm Comment:Testing performed by : [address] [address] Imm gran abs 0.0 0.0 - 0.1 K/cumm RONA Comment:Testing performed by : [address] [address] Lymphocyte abs 2.0 0.8 - 3.3 K/cumm RONA Comment:Testing performed by : [address] [address] Monocyte abs 0.8 0.2 - 0.8 K/cumm RONA Comment:Testing performed by : [address] [address] Eosinophil abs 0.1 0.0 - 0.5 K/cumm RONA Comment:Testing performed by : [address] [address] Basophil abs 0.0 0.0 - 0.1 K/cumm RONA Comment:Testing performed by : [address] [address] Neutrophil pct 73.5 % RONA Comment: Interpretive Data Percent cell count reference ranges are not reported, since discordance with absolute values may lead to misinterpretation of CBC data. Current Interpretive Data was last revised on 2017. Testing performed by: [address] [address] Imm gran pct 0.4 % RONA Comment: Interpretive Data Percent cell count reference ranges are not reported, since discordance with absolute values may lead to misinterpretation of CBC data. Current Interpretive Data was last revised on 2017. Testing performed by: [address] [address] Lymphocyte pct 17.4 % RONA Comment: Interpretive Data Percent cell count reference ranges are not reported, since discordance with absolute values may lead to misinterpretation of CBC data. Current Interpretive Data was last revised on 2017. Testing performed by: [address] [address] Monocyte pct 7.3 % [facility] Comment: Interpretive Data Percent cell count reference ranges are not reported, since discordance with absolute values may lead to misinterpretation of CBC data. Current Interpretive Data was last revised on 2017. Testing performed by: [address] [address] Eosinophil pct 1.1 % RONA Comment: Interpretive Data Percent cell count reference ranges are not reported, since discordance with absolute values may lead to misinterpretation of CBC data. Current Interpretive Data was last revised on 2017. Testing performed by: [address] [address] Basophil pct 0.3 % [facility] Comment: Interpretive Data Percent cell count reference ranges are not reported, since discordance with absolute values may lead to misinterpretation of CBC data. Current Interpretive Data was last revised on 2017. Testing performed by: [address] [address] Blood 07/19/2024 9:58 PM CDT 07/19/2024 10:00 PM CDT us Gladys DELUNA LAB BLOOD ORDERABLES F inal Result [facility] [address] [facility] Department [place] [address] * (ABNORMAL) CBC with auto differential (07/19/2024 9:58 PM CDT) WBC 11.4(H) 3.8 - 9.9 K/cumm Comment:Testing performed by : [address] [address] Hgb 13.1 13.0 - 17.5 g/dL RONA Comment:Testing performed by : [address] [address] Hct 39.7 38.9 - 50.3 % RONA Comment:Testing performed by : [address] [address] Plt 243 150 - 400 K/cumm RONA Comment:Testing performed by : [address] [address] MPV 10.1 9.1 - 12.3 fL RONA Comment:Testing performed by : [address] [address] RBC 4.42 4.30 - 5.80 M/cumm RONA Comment:Testing performed by : [address] [address] MCV 89.8 81.3 - 96.4 fL RONA Comment:Testing performed by : [address] [address] MCH 29.6 27.1 - 33.3 pg RONA ROBERTSON Comment:Testing performed by : [address] [address] MCHC 33.0 32.3 - 35.7 g/dL RONA Comment:Testing performed by : [address] [address] RDW CV 13.5 11.1 - 14.9 % RONA ROBERTSON Comment:Testing performed by : [address] [address] RDW SD 45.0 35.7 - 48.1 fL RONA ROBERTSON Comment:Testing performed by : [address] [address] NRBC abs 0.00 0.00 - 0.01 K/cumm RONA ROBERTSON Comment:Testing performed by : [address] [address] Blood 07/19/2024 9:58 PM CDT 07/19/2024 10:00 PM CDT us Gladys DELUNA LAB BLOOD ORDERABLES F inal Result [facility] [address] [facility] Department [place] [address] * Comprehensive metabolic panel (07/19/2024 9:58 PM CDT) Sodium 141 135 - 145 mmol/L Comment:Testing performed by : [address] [address] Potassium, pl 4.1 3.3 - 4.9 mmol/L RONA ROBERTSON Comment:Testing performed by : [address] [address] Chloride 108 97 - 110 mmol/L RONA ROBERTSON Comment:Testing performed by : [address] [address] CO2 23 22 - 32 mmol/L RONA ROBERTSON Comment:Testing performed by : [address] [address] Anion gap 10 2 - 15 mmol/L RONA ROBERTSON Comment:Testing performed by : [address] [address] BUN 18 6 - 25 mg/dL RONA ROBERTSON Comment:Testing performed by : [address] [address] Creatinine 0.88 0.80 - 1.30 mg/dL RONA ROBERTSON Comment:Testing performed by : [address] [address] Glucose 136 70 - 199 mg/dL RONA Comment: Interpretive Data Fasting glucose >/= 126 mg/dl is diagnostic for diabetes. Fasting is defined as no caloric intake for at least 8 hours. Fasting glucose between 100 mg/dl to 125 mg/dl is diagnostic of prediabetes. In a patient with classic symptoms of hyperglycemia or hyperglycemic crisis, a random glucose >/= 200 mg/dl is diagnostic for diabetes. In the absence of unequivocal hyperglycemia, results should be confirmed by repeat testing. The classification and Diagnosis of Diabetes Diabetes Care 2021; 46: S19-S40. Current interpretive data was last revised 2022. Testing performed by: [address] [address] Calcium 9.6 8.5 - 10.3 mg/dL RONA Comment:Testing performed by : [address] [address] Bilirubin, total 0.4 0.1 - 1.2 mg/dL [facility] Comment:Testing performed by : [address] [address] Protein, pl 7.3 6.5 - 8.5 g/dL [facility] Comment:Testing performed by : [address] [address] Albumin 4.2 3.5 - 5.0 g/dL [facility] Comment:Testing performed by : [address] [address] Alk phos 101 40 - 130 Units/L [facility] Comment:Testing performed by : [address] [address] ALT 14 7 - 55 Units/L [facility] Comment:Testing performed by : [address] [address] AST 24 10 - 50 Units/L RONA Comment:Testing performed by : [address] [address] Blood 07/19/2024 9:58 PM CDT 07/19/2024 10:00 PM CDT Gladys DELUNA LAB BLOOD ORDERABLES F inal Result RONA [facility] Department [place] [address] * PSA screen (09/12/2016 11:14 AM CDT) [facility] Signature PSA Screen 0.5 0.0 - 5.4 ng/mL Comment: Method: ECLIA Values obtained by different assay methods cannot be used interchangeably. Use sequential testing to confirm baseline if assay method changed during patient monitoring. 09/12/2016 11:1 4 AM CDT 09/12/2016 11:43 AM CDT us Olayinka John MD LAB BLOOD ORDERABLES Final Res ult Performing Organization Address City/[facility]/ZIP Co de Phone Number [facility] HISTORICAL RESULTS from Last 3 Months or Most Recently Relevant to Health Maintenance Insurance MEDICARE [facility] HMO/PPO Address: [address] [address] [place] [address] MEDICARE [facility] HMO/PPO Address: [facility] [address] [place] [address] MEDICARE [facility] MEDICARE [facility] COMMERCIAL GENERIC Advance Directives For more information, please contact: [phone] * Full Code (Latest Code Status on File) Date Activated Date Inactivated Comments 12/24/2021 8:05 PM 12/25/2021 10:14 PM Care Teams [place] Relationship Specialty Start Date End Date Olayinka John MD PCP - General 12/29/16 Martha Masters MD [address] [facility] [place] [address] Consulting Physician Pain Management 06/16/21
--- OUTSIDE RECORDS SUMMARY | 2024-07-21 16:17 | XMS_ITS | Encounter Summary ---
Author Organization [facility] Address [address] [place] [address] Care Team Providers Care Director Validation Name Role Phone Olayinka John MD Primary Care Provider [phone] Encounter Details Date Type Department Care Team (Latest Contact Info) Description 06/01/2021 Movie Moutht Message Enc [facility] Family & Internal Medicine [facility] [address] [place] [address] Olayinka John MD [facility] [place] [address] Appointment cancellation & reschedule Social History Tobacco Use Types Packs/Day Years Used Date Smoking Tobacco: Every Day Cigarettes 0.8 40 Smokeless Tobacco: Never Comments:Recommended smoking cessation as well as benefits of giving up smoking with patient Alcohol Use Standard Drinks/Week Comments Yes 3.3 (1 standard drink = 0.6 oz p ure alcohol) 2-3 per day (sometimes) AUDIT-C Answer Date Recorded Frequency of Alcohol Consumption Never 04/10/2019 Average Number of Drinks Not asked 019 Frequency of Binge Drinking Not asked 03/31 PHQ-2 Answer Date Recorded PHQ-2 Score - If the patient scores above 3, please move on to questions 3-9 0 05/26/2021 Sex and Gender Information Value Date Recorded Sex Assigned at Male 03/15/2018 10:58 AM RAD TECHNOLOGIST Legal Sex Male 7:04 PM CDT Gender Identity Male 03/15/2018 10:58 AM RAD TECHNOLOGIST Sexual Orientation Straight 03/15/2018 10 :58 AM RAD TECHNOLOGIST 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 [place] [address] Shaun Frost MD [address] [address] 08/29/2024 1:30 PM CDT - 08/29/2024 2:00 PM CDT Surgery [facility] [address] Shaun Frost MD [address] [address] COLONOSCOPY 11/19/2024 1:20 PM CDT Office Visit [facility] Family & Internal Medicine [address] [phone] Olayinka John MD [address] [place] [id number] Scheduled Procedures Name Priority Associated Diagnoses Date/Ti me COLONOSCOPY Screening for colon cancer Encounter for colonoscopy due to history of adenomatous colonic polyps 08/29/2024 1:30 PM CDT documented as of this encounter Visit Diagnoses Not on filedocumented in this encounter Additional Health Concerns Assessment Noted Time PHQ-9 Depression Total Score: 0 05/26/19 22 10:13 AM RAD TECHNOLOGIST documented as of this encounter Care Teams Director Validation Relationship Specialty Start Date End Date Olayinka John MD [address] [place] [address] PCP - General INTERNAL MEDICINE 06/15/17 documented as of this encounter
--- OUTSIDE RECORDS SUMMARY | 2024-07-21 16:17 | XMS_ITS | Clinical Summary ---
Author Organization [facility] Address [address] [place] [address] Care Team Providers Care Steam Engineer Name Role Phone Olayinka John MD Primary Care Provider [phone] Source Comments [employer] [facility],non-owned Affiliates and Associated Physician Practices is amultiple site organization consisting of ambulatory clinics and hospital sitesin [place], [place], [place] and [place]. This disclosure is being madepursuant to the Care Everywhere program and may not contain all information available regarding this patient. Last updated 18.[employer] [facility] Allergies No known active allergies Medications * Be aware that medications may not be up to date on this document. Alwaysverify current medications with the patient. Medication Sig Dispensed Refills Start Date End Date Status amLODIPine (NORVASC) 10 MG tablet Take 1 tablet by mouth once daily 12/03/2020 Active aspirin buffered (BUFFERIN LOW DOSE) 81 MG tablet Take 81 mg by mouth once daily Active DULoxetine (CYMBALTA) 60 MG capsule 02/28/2021 Active esomeprazole (NEXIUM) 40 MG capsule 01/10/2021 Active naproxen (NAPROSYN) 500 MG tablet TAKE ONE TABLET BY MOUTH EVERY 12 HOURS WITH FOOD 07/15/2020 Active oxyCODONE CR 12hr (OXYCONTIN) 60 MG tablet Take 60 mg by mouth 3 times daily 02/26/2021 Active OXYCONTIN 60 MG tablet 01/26/2021 Ac tive Active Problems No known active problems Immunizations Name Administration Dates Next Due INFLUENZA VACCINE 02/20/2020,03/02/2019,03/15/20 17 PNEUMOCOCCAL PPSV23 03/15/2018 Pneumococcal Pcv13 Conj 03/15/2017 Social History Tobacco Use Types Packs/Day Years Used Date Smoking Tobacco: Every Day Cigarettes Smokeless Tobacco: Never Tobacco Cessation:Ready to Q uit: No; Counseling Given: Yes Alcohol Use Standard Drinks/Week Comments Yes 0 (1 standard drink = 0.6 oz pur e alcohol) 4 shots/week Sex and Gender Information Value Date Recorded Sex Assigned at Not on file Gender Identity Not on file Sexual Orientation Not on file Last Filed Vital Signs Vital Sign Reading Time Taken Comments Blood Pressure 156/94 03/03/2021 12:52 PM CDT Pulse 92 03/03/2021 12:52 PM CDT Temperature 36.6 C (97.9 F) 03/01/2021 1:24 PM CDT Respiratory Rate 18 03/03/2021 12:52 PM CDT Oxygen Saturation 98% 03/01/2021 1:24 PM CDT Inhaled Oxygen Concentration - - Weight 120.2 kg (265 lb) 03/03/2021 12:52 PM CDT Height 185.4 cm (6' 1 ) 03/03/2021 12:52 PM CDT Body Mass Index 34.96 03/03/2021 12:52 PM CDT Plan of Treatment Health Maintenance Due Date Last Done Comments COLOGUARD (AGES 45-75) - COLON CA SCREENING 1951 COLON MONITORING 1950 COLONOSCOPY - COLON CA SCREENING 1951 CT COLONOGRAPHY - COLON CA SCREENING 1950 Colorectal Cancer Screening 1950 FIT - COLON CA SCREENING 1950 FLEX SIG - COLON CA SCREENING 1950 LIPID TESTING 1950 MEDICARE AWV 12 MONTHS 1950 HEPATITIS C SCREENING 03/09/1969 DTAP/TDAP/TD VACCINES (1 - Tdap) 1970 ZOSTER VACCINE (1 of 2) 2001 AAA SCREENING 2016 SCREENING FOR DIABETES 03/01/2021 COVID-19 VACCINE ( - season) 2023 07/01/2020, 06/03/2020 INFLUENZA VACCINE (#1) 2023 , 02/20/2020, 03/02/2019, Additional history exists DEPRESSION SCREENING 05/01/2024 Respiratory Syncytial Virus (RSV) Vaccine Pt: or over 60 yrs (1 - 1-dose 75+ series) 2026 PNEUMOCOCCAL VACCINE 50+ Completed 03/15/2018, 03/01 HEPATITIS B VACCINE Aged Out No longe r eligible based on patient's age to complete this topic HIB VACCINE Aged Out No longer eligi ble based on patient's age to complete this topic HPV VACCINE Aged Out No longer eligi ble based on patient's age to complete this topic MENINGOCOCCAL (Group B) VACCINE SHARED DECISION-MAKING Aged Out No longer eligible based on patient's age to complete this topic MENINGOCOCCAL GROUPS A/C/Y/W VACCINE Aged Out No longer eligible based on patient's age to complete this topic Medical Devices Implanted Type Area Commercial Assistant Device Identifier Shelf Expiration Date Model / Serial / Lot Infusion Pump-10/28/2011 Implanted:09/30 (Quantity not on file) Infusion Pump Description:iSitesro med 2, Serial Number:[id number]. Inactive pump, 1.5 or 3T only per [employer]. Care Teams Steam Engineer Relationship Specialty Start Date End Date Olayinka John MD [address] [place] [id number] PCP - General 01/07/21
--- OUTSIDE RECORDS SUMMARY | 2024-07-21 16:17 | XMS_ITS | Encounter Summary ---
Author Organization [facility] Healthcare Address [address] [place] [address] Care Team Providers Care Manager Home Name Role Phone Olayinka John MD Primary Care Provider [phone] Martha Masters MD Unavailable Encounter Details Date Type Department Care Team (Late st Contact Info) Description 05/18/2023 Telephone [facility] Pain Mgmt [address] [place] [id number] Martha Masters MD [address] [place] [address] PAIN CENTER, [address] [address] Social History Tobacco Use Types Packs/Day Years Used Date Smoking Tobacco: Every Day Cigarettes 0.8 40 Alcohol Use Standard Drinks/Week Comments Not Currently [...] more drinks on one occasion? 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 [facility] [place] [address] Consulting Physician Pain Management 06/16/21 documented as of this encounter
--- OUTSIDE RECORDS SUMMARY | 2024-07-21 16:17 | XMS_ITS | Encounter Summary ---
Author Organization [facility] Healthcare Address [address] [place] [address] Care Team Providers Care Gamma Facilities Operator Name Role Phone Unavailable Primary Care Provider Unavailabl e Reason for Visit * MRI/CAT/PET Scan (Routine) - Closed Specialty Diagnoses / Procedures Referred By Migel morales Referred To Contact Diagnoses Pain Procedures MSK MR Outside Reference Transcribed Order, Provider Referral ID Status Reason Start Date Expiration Date Visits Re quested Visits Authorized [id number] Closed 07/08/2021 08/07/2022 1 1 Encounter Details Date Type Department Care Team (Late st Contact Info) Description 06/10/1949 Ancillary Procedure [facility] Outside Films [address] [place] [address] Social History Tobacco Use Types Packs/Day Years Used Date Smoking Tobacco: Never Assessed Sex and Gender Information Value Date Recorded Sex Assigned at Not on file 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 us Provider Transcribed Order IMG MRI PROCEDURES Fi nal Result LEIGHA_JORDAN_MARCELOB_MHE documented in this encounter Visit Diagnoses Not on filedocumented in this encounter
--- OUTSIDE RECORDS SUMMARY | 2024-07-21 16:17 | XMS_ITS | Clinical Summary ---
Author Organization [facility] Address [address] [place] [address] Care Team Providers Care Woven Wood Shade Assembler Name Role Phone Olayinka John MD Primary Care Provider [phone] Martha Masters MD Unavailable Allergies No known active allergies Medications OXYCONTIN [...] capsule (300 mg total) by mouth daily 4 Active Active Problems Problem Noted Date Diagnosed Date Tinnitus of both ears 09/12/2023 Bilateral impacted cerumen 09/12/2023 Sensorineural hearing loss (SNHL) of both ears 0 09/12/2023 Arrhythmia 12/24/2021 Status post total replacement of left hip 2019 Encounters Date Type Department Care Team Description 07/19/2024 9:37 PM CDT - 07/20/2024 12:17 AM CDT Emergency [facility] Emergency Department [address] [place] [address] Postoperative complication of skin involving drainage from surgical wound (Primary Dx) Discharge Disposition: Discharge to home or self care from Last 3 Months Surgical History Surgery Date Site/Laterality Comments SHOULDER SURGERY SPINAL FUSION HIP SURGERY KNEE SURGERY JOINT REPLACEMENT Bilateral BACK SURGERY SPINAL CORD STIMULATOR IMPLANT 12/24/2021 N/A Medical History Medical History Date Comments Osteoarthritis Hypercholesteremia GERD (gastroesophageal reflux disease) Depression Hypertension Sinus infection Shoulder pain Cancer (HCC) skin Chronic pain disorder Obesity Family History Medical History Relation Name Comments Alcohol abuse Father Family history of alcoholism - (Added by TW Conv) Alcohol abuse Mother Family history of alcoholism - (Added by TW Conv) Cancer Sister Family history of malignant neoplasm - (Added by TW Conv) Relation Name Status Comments Father Mother Sister Social History Tobacco Use Types Packs/Day Years [...] on file 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 Gender Identity Not on file Sexual Orientation Not on file Occupation Industry Job Start Date Job End Date retired Not on file Not on file Not on file Obstetrics History Last Filed Vital Signs Vital Sign Reading [...] 07/19/2024 7:57 PM CDT Plan of Treatment Health Maintenance Due Date Last Done Comments Colon Cancer Screening-Colonoscopy 1950 Depression Screening 1950 Hepatitis C Screening 1950 DTaP/Tdap/Td Vaccine (1 - Tdap) 1962 Hepatitis B Screening 1969 Zoster Vaccine (1 of 2) 2001 Well Visit 65+ 2016 Fall Risk Assessment 12/25/2022 12/25/2021 Covid-19 Vaccine (2023-2 5 season) 2023 03/04/2022, 02/25/2021, 07/01/2020, Additional history exists Prostate Cancer Screening-PSA Discontinued 09/12/2016, 11/12/2014 Pneumococcal vaccine 65+ Completed 03/15/2018, 03/01 Influenza Vaccine Completed 02/20/2024, , 02/24/2021, Additional history exists Abdominal Aortic Aneurysm (A AA) Screen Completed 07/19/2024, 10/06/2020, 12/13/2015 Medical Devices Implanted Type Area Varnish Melter Device Identifier Shelf Expiration Date Model / Serial / Lot [employer] Precision 50cm Trial Linear Straight Tip Preloaded Stylet .014in Sc-2218-50e - [id number] - [id number] Implanted:Qty: 1 on 10/11/2021 by Martha Masters MD at [facility] Stimulator Back [employer] Ernie 08/03/2023 SC-2218-5 0E / [id number] / Description:REQQIENTIFI C LINEAR ST 70 cm 8 CONTACT TRIAL LEAD KIT; IMPLANT #1; T12-L1 INSERTION LEVEL T7-8 LEAD IMPLANT LEVEL [employer], an [employer] Precision 50cm Trial Linear Straight Tip Preloaded Stylet .014in Ms-2218-50e - [id number] - [id number] Implanted:Qty: 1 on 10/11/2021 by Martha Masters MD at [facility] Stimulator Back [employer] Ernie 12/11/2021 UT-2218-5 0E / [id number] / Description:[employer] SCIENTIFI C LINEAR ST 70 cm 8 CONTACT TRIAL LEAD KIT; IMPLANT #2; T12-L1 INSERTION LEVEL T7-8 LEAD IMPLANT LEVEL [employer], an [employer] Precision 50cm Linear Straight Tip Preloaded Enhanced Stylet Sc-2218-50 - [id number] - [id number] Implanted:Qty: 1 on 12/24/2021 by Martha Masters MD at [facility] [employer] Ernie 05/26/2023 [id number] 0 / [id number] / [id number] [employer], an [employer] Precision 50cm Linear Straight Tip Preloaded Enhanced Stylet [facility]18-50 - [id number] - [id number] Implanted:Qty: 1 on 12/24/2021 by Martha Masters MD at [facility] [employer] Ernie 05/11/2023 UT-2218-5 0 / [id number] / [id number] [employer], an [employer] Clik X [place] Lead Spinal Cord Stimulation Systems Ms-4318 - [id number] Implanted:Qty: 1 on 12/24/2021 by Martha Masters MD at [facility] [employer] Ernie 10/14/2022 UT-4318 / / [id number] [employer], an [employer] Kit Pulse Generator Wavewriter Alpha 16 Thk10.7mm [id number] - [id number] - [id number] Implanted:Qty: 1 on 12/24/2021 by Martha Masters MD at [facility] sc[employer] mobility Neuro- 09/30/2023 [id number] / [id number] / [id number] Description:NO CHARGE, IN ARGE SYSTEM KIT Procedures [...] Bhupendra Truong M.D. AT: AT Report ID: [id number] Reading Location: [id number] Procedure Note Bhupendra Truong MD - 07/19/2024 EXAM DESCRIPTION: CT RECON THORACIC AND LUMBAR SPINE WO CONTRAST (C); CTCHEST ABDOMEN PELVIS W CONTRAST REASON FOR STUDY: Wound leaking after spine stimulator placement yesterday PT AMBULATORY TO TRIAGE STATES HE HAD [facility]. PT STATES IT HAS BEEN [...] Bhupendra Truong M.D. AT: AT Report ID: [id number] Reading Location: [id number] Gladys DELUNA IMG CT PROCEDURES [place] [...] Bhupendra Truong M.D. AT: AT Report ID: [id number] Reading Location: [id number] Procedure Note Bhupendra Truong MD - 07/19/2024 EXAM DESCRIPTION: CT RECON THORACIC AND LUMBAR SPINE WO CONTRAST (C); CTCHEST ABDOMEN PELVIS W CONTRAST REASON FOR STUDY: Wound leaking after spine stimulator placement yesterday PT AMBULATORY TO TRIAGE STATES HE HAD [facility]. PT STATES IT HAS BEEN [...] Bhupendra Truong M.D. AT: AT Report ID: [id number] Reading Location: [id number] Gladys DELUNA IMG CT PROCEDURES Park l Result * Lactate (07/19/2024 9:58 PM CDT) Lactate 1.4 0.7 - 2.0 mmol/L Comment:Testing performed by : [address] [address] Blood 07/19/2024 9:58 PM CDT 07/19/2024 10:00 PM CDT Gladys DELUNA LAB BLOOD ORDERABLES F inal Result [facility] Department [place] [address] * eGFR (07/19/2024 9:58 PM [...] was last reviewed 2021. Testing performed by: [address] [address] Blood 07/19/2024 9:58 PM CDT 07/19/2024 10:00 PM CDT us Gladys DELUNA LAB BLOOD ORDERABLES F inal Result RONA [address] [facility] [place] [address] * (ABNORMAL) Differential, auto (07/19/2024 9:58 PM CDT) Neutrophil abs 8.3(H) 1.5 - 6.5 K/cumm Comment:Testing performed by : [address] [address] Imm gran abs 0.0 0.0 - 0.1 K/cumm RONA Comment:Testing performed by : [address] [address] Lymphocyte abs 2.0 0.8 - 3.3 K/cumm RONA Comment:Testing performed by : [address] [address] Monocyte abs 0.8 0.2 - 0.8 K/cumm RONA Comment:Testing performed by : [address] [address] Eosinophil abs 0.1 0.0 - 0.5 K/cumm RONA Comment:Testing performed by : [address] [address] Basophil abs 0.0 0.0 - 0.1 K/cumm RONA Comment:Testing performed by : [address] [address] Neutrophil pct 73.5 % [facility] Comment: Interpretive Data Percent cell count reference ranges are not reported, since discordance with absolute values may lead to misinterpretation of CBC data. Current Interpretive Data was last revised on 2017. Testing performed by: [address] [address] Imm gran pct 0.4 % RONA Comment: Interpretive Data Percent cell count reference ranges are not reported, since discordance with absolute values may lead to misinterpretation of CBC data. Current Interpretive Data was last revised on 2017. Testing performed by: [address] [address] Lymphocyte pct 17.4 % [facility] Comment: Interpretive Data Percent cell count reference ranges are not reported, since discordance with absolute values may lead to misinterpretation of CBC data. Current Interpretive Data was last revised on 2017. Testing performed by: [address] [address] Monocyte pct 7.3 % [facility] Comment: Interpretive Data Percent cell count reference ranges are not reported, since discordance with absolute values may lead to misinterpretation of CBC data. Current Interpretive Data was last revised on 2017. Testing performed by: [address] [address] Eosinophil pct 1.1 % [facility] Comment: Interpretive Data Percent cell count reference ranges are not reported, since discordance with absolute values may lead to misinterpretation of CBC data. Current Interpretive Data was last revised on 2017. Testing performed by: [address] [address] Basophil pct 0.3 % [facility] Comment: Interpretive Data Percent cell count reference ranges are not reported, since discordance with absolute values may lead to misinterpretation of CBC data. Current Interpretive Data was last revised on 2017. Testing performed by: [address] [address] Blood 07/19/2024 9:58 PM CDT 07/19/2024 10:00 PM CDT us Gladys DELUNA LAB BLOOD ORDERABLES F inal Result RONA [address] [facility] [place] [address] * (ABNORMAL) CBC with auto differential (07/19/2024 9:58 PM CDT) WBC 11.4(H) 3.8 - 9.9 K/cumm Comment:Testing performed by : [address] [place]., [address] Hgb 13.1 13.0 - 17.5 g/dL RONA Comment:Testing performed by : [address], [address] Hct 39.7 38.9 - 50.3 % RONA Comment:Testing performed by : [address] [address] Plt 243 150 - 400 K/cumm RONA Comment:Testing performed by : [address], [address] MPV 10.1 9.1 - 12.3 fL RONA Comment:Testing performed by : [address], [address] RBC 4.42 4.30 - 5.80 M/cumm RONA Comment:Testing performed by : [address], [address] MCV 89.8 81.3 - 96.4 fL RONA Comment:Testing performed by : [address], [address] MCH 29.6 27.1 - 33.3 pg RONA Comment:Testing performed by : [address], [address] MCHC 33.0 32.3 - 35.7 g/dL RONA Comment:Testing performed by : [address], [address] RDW CV 13.5 11.1 - 14.9 % RONA Comment:Testing performed by : [address], [address] RDW SD 45.0 35.7 - 48.1 fL RONA Comment:Testing performed by : [address], [address] NRBC abs 0.00 0.00 - 0.01 K/cumm RONA Comment:Testing performed by : [address] [address] Blood 07/19/2024 9:58 PM CDT 07/19/2024 10:00 PM CDT us Gladys DELUNA LAB BLOOD ORDERABLES F inal Result ROAN [address] [facility] [place] [address] * Comprehensive metabolic panel (07/19/2024 9:58 PM CDT) Sodium 141 135 - 145 mmol/L Comment:Testing performed by : [address] [address] Potassium, pl 4.1 3.3 - 4.9 mmol/L RONA Comment:Testing performed by : [address] [address] Chloride 108 97 - 110 mmol/L RONA Comment:Testing performed by : [address] [address] CO2 23 22 - 32 mmol/L RONA Comment:Testing performed by : [address] [address] Anion gap 10 2 - 15 mmol/L RONA Comment:Testing performed by : [address] [address] BUN 18 6 - 25 mg/dL RONA Comment:Testing performed by : [address] [address] Creatinine 0.88 0.80 - 1.30 mg/dL RONA Comment:Testing performed by : [address] [address] Glucose 136 70 - 199 mg/dL RONA [...] classification and Diagnosis of Diabetes Diabetes Care 202; 46: S19-S40. Current interpretive data was last revised 2022. Testing performed by: [address] [address] Calcium 9.6 8.5 - 10.3 mg/dL RONA Comment:Testing performed by : [address] [address] Bilirubin, total 0.4 0.1 - 1.2 mg/dL RONA Comment:Testing performed by : [address] [address] Protein, pl 7.3 6.5 - 8.5 g/dL [facility] Comment:Testing performed by : [address], [place]., [address] Albumin 4.2 3.5 - 5.0 g/dL RONA Comment:Testing performed by : [address] [address] Alk phos 101 40 - 130 Units/L RONA Comment:Testing performed by : [address] [address] ALT 14 7 - 55 Units/L [facility] Comment:Testing performed by : [address] [address] AST 24 10 - 50 Units/L [facility] Comment:Testing performed by : [address] [address] Blood 07/19/2024 9:58 PM CDT 07/19/2024 10:00 PM CDT Gladys DELUNA LAB BLOOD ORDERABLES F inal Result RONA [address] [facility] of Laboratories [place], [place] [id number] * PSA screen (09/12/2016 11:14 AM CDT) [facility] Signature PSA Screen 0.5 0.0 - 5.4 ng/mL 09/12/2016 12:30 PM CDT [facility] HISTORICAL RESULTS Comment: Method: ECLIA Values obtained by different assay methods cannot be used interchangeably. Use sequential testing to confirm baseline if assay method changed during patient monitoring. 09/12/2016 11:1 4 AM CDT 09/12/2016 11:43 AM CDT Olayinka John MD LAB BLOOD ORDERABLES Final Res ult [facility] Dining Secretary HISTORICAL RESULTS from Last 3 Months or Most Recently Relevant to Health Maintenance Insurance MEDICARE [facility] Address: [facility] [address] [place] [address] [facility] MEDICARE [facility] MEDICARE [facility] MEDICARE [facility] COMMERCIAL GENERIC Advance Directives For more information, please contact: [phone] * Full Code (Latest Code Status on File) Date Activated Date Inactivated Comments 12/24/2021 8:05 PM 12/25/2021 10:14 PM Care Teams Woven Wood Shade Assembler Relationship Specialty Start Date End Date Olayinka John MD PCP - General 12/29/16 Martha Masters MD [address] [facility] [address] Consulting Physician Pain Management 06/16/21
--- OUTSIDE RECORDS SUMMARY | 2024-07-21 16:17 | XMS_ITS | Encounter Summary ---
Author Organization [facility] Healthcare Address [address] [place] [address] Care Team Providers Care [employer] Process Worker Name Role Phone Olayinka John MD Primary Care Provider [phone] Martha Masters MD Unavailable Reason for Visit * Reason Comments Wellness Visit Wound Check Encounter Details Date Type Department Care Team (Late st Contact Info) Description 07/19/2024 9:37 PM CDT - 07/20/2024 12:17 AM T [facility] Emergency Department [address] [place] [address] [id number] Postoperative complication of skin involving drainage from surgical wound (Primary Dx) Discharge Disposition: Discharge to home or self care Social History Tobacco Use Types Packs/Day Years Used Date Smoking Tobacco: Former Cigarettes 0.8 40 Alcohol Use Standard Drinks/Week [...] on file Legal Sex Male 2:24 AM [employer] Gender Identity Not on file Sexual Orientation Not on file Occupation Industry Job Start Date Job End Date retired Not on file Not on file Not on file documented as of this encounter Last Filed Vital Signs Vital Sign Reading [...] Mass Index 30.34 07/19/2024 7:57 PM CDT documented in this encounter Discharge Instructions * Discharge Instructions* Gladys Valenzuela PA - 07/20/2024 12:10 AM CDT Thank you for allowing us to take care of you at [facility]. Please follow up with your primary care physician or specialist, as soon as possible, and ideally within 7 days. Please take any new medications as prescribed. Please return to the emergency department for worsening of your symptoms or any new problems which may arise. It is mandatory that you follow up, as recommended, with a primary care physician or specialist, per your discharge paperwork.You have received emergency care only at your visit today, an this is nota substitute for ongoing care, further evaluation, or treatment. Therefore, follow-up as directed is not optional, but mandatory. This ensures that any incidental abnormal radiographic and laboratoryfindings are evaluated appropriately. Return immediately for any new symptoms, worsening of symptoms, or persistent symptoms. We are open21/11 and will take care of you. If you see any signs of fever, redness, swelling, increased drainage, purulent drainage, confusion,severe headache, blurry vision, dizziness, nausea or vomiting please return to the emergency room immediately. Please follow up with your neurosurgeon within the next week as well as your PCP. * Attachments The following attachments cannot be sent through Care Everywhere. * Acute Wound Care (Discharge Care) (Hungarian) documented in this encounter Medications at Time of Discharge acetaminophen (TYLENOL) 325 mg tabletIndication s:Fever,Pain Take 2 tablets (650 mg total) by mouth every 4 (four) hours as needed for pain 10 tablet 12/25/2021 amLODIPine (NORVASC) 10 mg tablet Take 1 tablet (10 mg total) by mouth daily aspirin 81 mg enteric coated tablet Take 1 tablet (81 mg total) by mouth daily coenzyme Q10 100 mg capsule Take 1 capsule (100 mg total) by mouth daily DULoxetine DR (CYMBALTA) 60 mg capsule Take 1 capsule (60 mg total) by mouth daily esomeprazole DR (NexIUM) 40 mg capsule Take 1 capsule (40 mg total) by mouth daily before breakfast gabapentin (NEURONTIN) 300 mg capsule Take 1 capsule (300 mg total) by mouth daily 08/01/2023 naproxen (NAPROSYN) 500 mg tablet Take 1 tablet (500 mg total) by mouth 2 (two) times a day with meals OXYCONTIN 60 mg tablet,oral only,ext.rel.12 hr Take 1 tablet (60 mg total) by mouth as needed As needed, once every couple of days 0 02/19/2019 documented as of this encounter Discharge Disposition Disposition Code Departure Means Destination Comment s Discharge to home or self care documented in this encounter ED Notes * Gladys Valenzuela PA - 07/19/2024 9:51 PM CDT CHIEF COMPLAINT: Chief Complaint Patient presents with Wellness Visit Wound Check HPI 12:08 AM Lexus Borden is a 74 y.o. male presenting to the ED c/o clear drainage from his incision onhis right lower back that has occurred today. Patient states he had a spinal stimulator placed yesterday. Patient states he has had a large amount of clear drainage from the incision on the right lower back. Patient states he has had a headache today. Patient denies taking any pain medication for his symptoms. Patient denies any pain, redness, swelling, pus-like drainage, fever, blurry vision, dizziness, nausea, vomiting, numbness, tingling, bowel or bladder incontinence. PCP: Olayinka John MD PAST MEDICAL HISTORY Past Medical History: Diagnosis Date Cancer (HCC) skin Chronic pain disorder Depression GERD (gastroesophageal reflux disease) Hypercholesteremia Hypertension Obesity Osteoarthritis Shoulder pain Sinus infection PAST SURGICAL HISTORY Past Surgical History: Procedure Laterality Date BACK SURGERY HIP SURGERY JOINT REPLACEMENT Bilateral KNEE SURGERY SHOULDER SURGERY SPINAL CORD STIMULATOR IMPLANT N/A 12/24/2021 SPINAL FUSION FAMILY HISTORY Family History Problem Relation Age of Onset Alcohol abuse Mother Family history of alcoholism - (Added by TW Conv) Alcohol abuse Father Family history of alcoholism - (Added by TW Conv) Cancer Sister Family history of malignant neoplasm - (Added by TW Conv) MEDICATIONS GIVEN IN THE ED Medications ketorolac (TORADOL) 30 mg/mL injection 15 mg (15 mg intravenous Given 07/19/242205) diphenhydrAMINE (BENADRYL) 50 mg/mL injection 25 mg (25 mg intravenous Given 07/19/242206) prochlorperazine (COMPAZINE) injection 5 mg (5 mg intravenous Given 07/19/242207) dexAMETHasone (DECADRON) preservative free solution 10 mg (10 mg intravenous Given 07/19/242208) sodium chloride 0.9% bolus 1,000 mL (0 mL intravenous Stopped 07/19/242302) ioversoL (OPTIRAY 350) syringe 100 mL (100 mL intravenous Contrast Given 07/19/242237) CURRENT HOME MEDICATIONS No current facility-administered medications for this encounter. Current Outpatient Medications: acetaminophen (TYLENOL) 325 mg tablet, Take 2 tablets (650 mg total) by mouth every 4 (four) hours as needed for pain, Disp: 10 tablet, Rfl: 0 amLODIPine (NORVASC) 10 mg tablet, Take 1 tablet (10 mg total) by mouth daily, Disp: , Rfl: aspirin 81 mg enteric coated tablet, Take 1 tablet (81 mg total) by mouth daily (Patient not taking: Reported on 09/12/2023), Disp: , Rfl: coenzyme Q10 100 mg capsule, Take 1 capsule (100 mg total) by mouth daily (Patient not taking: Reported on 09/12/2023), Disp: , Rfl: DULoxetine DR (CYMBALTA) 60 mg capsule, Take 1 capsule (60 mg total) by mouth daily, Disp: , Rfl: esomeprazole DR (NexIUM) 40 mg capsule, Take 1 capsule (40 mg total) by mouth daily before breakfast, Disp: , Rfl: gabapentin (NEURONTIN) 300 mg capsule, Take 1 capsule (300 mg total) by mouth daily, Disp: , Rfl: naproxen (NAPROSYN) 500 mg tablet, Take 1 tablet (500 mg total) by mouth 2 (two) times a day with meals, Disp: , Rfl: OXYCONTIN 60 mg tablet,oral only,ext.rel.12 hr, Take 1 tablet (60 mg total) by mouth as needed As needed, once every couple of days (Patient not taking: Reported on 09/12/2023), Disp: , Rfl: 0 ALLERGIES No Known Allergies SOCIAL HISTORY Social History Tobacco Use Smoking status: Former Current packs/day: 0.75 Average packs/day: 0.8 packs/day for 40.0 years (30.0 ttl pk-yrs) Types: Cigarettes Smokeless tobacco: Not on file Substance and Sexual Activity Drug use: Yes Types: Marijuana, Oxycodone Comment: Twice a week at night Sexual activity: Defer Alcohol Use: Not At Risk (06/30/2022) AUDIT-C Frequency of Alcohol Consumption: 2-4 times a month Average Number of Drinks: 1 or 2 Frequency of Binge Drinking: Never PHYSICAL EXAM TRIAGE VITAL SIGNS: ED Triage Vitals [07/19/241956] Temp Pulse Resp BP SpO2 36.7 ??C (98.1 ??F) 82 20 157/90 99 % Temp src Heart Rate Source Patient Position BP Location FiO2 (%) Oral -- -- -- -- Height Height Method Weight Weight Method 1.854 m (6' 1 ) Stated 104.3 kg (230 lb) Stated Physical Exam Vitals and nursing note reviewed. Constitutional: General: He is not in acute distress. Appearance: He is well-developed. HENT: Head: Normocephalic and atraumatic. Eyes: Conjunctiva/sclera: Conjunctivae normal. Cardiovascular: Rate and Rhythm: Normal rate and regular rhythm. Heart sounds: No murmur heard. Pulmonary: Effort: Pulmonary effort is normal. No respiratory distress. Breath sounds: Normal breath sounds. Abdominal: Palpations: Abdomen is soft. Tenderness: There is no abdominal tenderness. Musculoskeletal: General: No swelling. Cervical back: Neck supple. Skin: General: Skin is warm and dry. Capillary Refill: Capillary refill takes less than 2 seconds. Comments: Well healing incisions along the thoracic and lumbar spine and right- sided lower back that are well healed with no surrounding erythema, tenderness, warmth or purulent drainage seen on exam Neurological: Mental Status: He is alert. Psychiatric: Mood and Affect: Mood normal. LABS Labs Reviewed CBC WITH AUTO DIFFERENTIAL - Abnormal Result Value WBC 11.4 (*) Hgb 13.1 Hct 39.7 Plt 243 MPV 10.1 RBC 4.42 MCV 89.8 MCH 29.6 MCHC 33.0 RDW CV 13.5 RDW SD 45.0 NRBC abs 0.00 DIFFERENTIAL AUTO - Abnormal Neutrophil abs 8.3 (*) Imm gran abs 0.0 Lymphocyte abs 2.0 Monocyte abs 0.8 Eosinophil abs 0.1 Basophil abs 0.0 Neutrophil pct 73.5 Imm gran pct 0.4 Lymphocyte pct 17.4 Monocyte pct 7.3 Eosinophil pct 1.1 Basophil pct 0.3 COMPREHENSIVE METABOLIC PANEL Sodium 141 Potassium, pl 4.1 Chloride 108 CO2 23 Anion gap 10 BUN 18 Creatinine 0.88 Glucose 136 Calcium 9.6 Bilirubin, total 0.4 Protein, pl 7.3 Albumin 4.2 Alk phos 101 ALT 14 AST 24 LACTATE Lactate 1.4 EGFR eGFR >90 RADIOLOGY Impression: CT chest abdomen pelvis/CT lumbar and thoracic spine::1. Spinal stimulator generator box within the right [...] edema and inflammation. Clinical correlation is recommended. EKG NA ED COURSE/MEDICAL DECISION MAKING Differential diagnosis included but not limited to postop infection, CSF leak, wound drainage, cellulitis, abscess, meningitis, headache, intracranial bleed, migraine Patient's medical records were reviewed. Patient seen in the ED for drainage from his postop incision. On exam patient has 3 well healing incisions to the thoracic and lumbar spine and right-sided low back that are well healing with no surrounding erythema, swelling, redness, purulent drainage or signs of infection. Patient has no tenderness on palpation of the incisions. No obvious drainage seen on exam. Patient is alert and oriented x4. No other acute abnormalities seen on exam. Patient's white blood cell count mildly elevated at 11.4. No other acute abnormality seen on labs. Patient states that his headache has resolved with a migraine cocktail. CT chest abdomen pelvis with recon to the lumbar and thoracic spine shows a spinal s timulator generator box within the right gluteal subcutaneous tissues with the leads extending intothe thoracic central canal and tip terminating at the level of T7 as well as some fluid collection and soft tissue gas adjacent to the spinal stimulator likely postprocedural as well as a loculated rim enhancing gas containing fluid collection within the right upper quadrant that is likely postprocedural. Patient states that he had a pain pump removed from his right upper quadrant yesterday as well that has been there for 10 years. Patient denies any pain in his right upper quadrant. Patient has no tenderness to the right upper quadrant. No abnormality seen to the incision. Spoke with ED atten ding, Dr. Reddy who agreed that CT and exam findings are likely normal postprocedural findings. Attempted to consult patient's neurosurgeon, , who was unable to consult on the patient dueto not having privileges at this hospital. Patient educated of findings and educated to follow up with his primary care provider in his neurosurgeon within the next week. Patient given strict return precautions if his symptoms worsen or if he sees any signs of fever, confusion, redness, swelling orpus-like drainage. Patient expressed understanding. Patient is stable for discharge home and followup with PCP. Procedures FINAL IMPRESSION Postoperative complication of skin involving drainage from surgical wound DISPOSITION: Home All findings were discussed with patient. Pt agreeable with plan. Non toxic appearing, vitals stable. Patient stable for discharge home. Given return to ER precautions Close outpatient follow-up with a low threshold to return has been mandated, concerning symptoms have been emphasized in detail, and this patient expresses understanding PATIENT INSTRUCTED TO FOLLOW UP No follow-up provider specified. DISCHARGE MEDICATIONS Your medication list ASK your doctor about these medications Instructions Last Dose Given Next Dose Due acetaminophen 325 mg tablet Commonly known as: TYLENOL 650 mg, oral, Every 4 hours PRN amLODIPine 10 mg tablet Commonly known as: NORVASC 10 mg, oral, Daily aspirin 81 mg enteric coated tablet 81 mg, Daily coenzyme Q10 100 mg capsule 100 mg, Daily DULoxetine DR 60 mg capsule Commonly known as: CYMBALTA 60 mg, oral, Daily esomeprazole DR 40 mg capsule Commonly known as: NexIUM 40 mg, oral, Daily before breakfast gabapentin 300 mg capsule Commonly known as: NEURONTIN 300 mg, oral, Daily naproxen 500 mg tablet Commonly known as: NAPROSYN 500 mg, oral, 2 times daily with meals (bkfst, dinner) OxyCONTIN 60 mg tablet,oral only,ext.rel.12 hr Generic drug: oxyCODONE ER 60 mg, As needed This examination was transcribed using the [employer] voice recognition system without human suction dredge dumping supervisor. In an effort to expedite patient care, this report has not been adjusted for typographical, grammatical, and syntax by a trained ophthalmic medical technician. Gladys Valenzuela PA 07/20/24 0008 * Krishna Harry RN - 07/19/2024 7:59 PM CDT PT AMBULATORY TO TRIAGE STATES HE HAD A PAIN STIMULATOR PLACED TO RIGHT LOWER BACK YESTERDAY. PT STATES IT HAS BEEN LEAKING FLUID. NO OBVIOUS DRAINAGE IN TRIAGE. DERMABOND INTAKE. PT STATES HE DOES HAVE A HEADACHE. documented in this encounter Plan of Treatment Not on file documented as of this encounter Procedures Procedure Name Priority Date/Time Associated Diagnosis Comments CT RECON THORACIC AND LUMBAR SPINE WO CONTRAST ED 07/19/2024 10:[address] CHEST ABDOMEN PELVIS W CONTRAST ED 07/19/2024 10:38 PM CDT LACTATE STAT 07/19/2024 9:58 PM CDT EGFR STAT 07/19/2024 9:58 PM CDT DIFFERENTIAL AUTO STAT 07/19/2024 9:5 8 PM CDT CBC WITH AUTO DIFFERENTIAL STAT 07/19/2024 9:58 PM CDT COMPREHENSIVE METABOLIC PANEL STAT 07/19/2024 9:58 PM CDT documented in this encounter Results * CT Recon Thoracic and Lumbar [...] Bhupendra Truong M.D. AT: AT Report ID: [id number] Reading Location: [id number] Procedure Note Bhupendra Truong MD - 07/19/2024 [...] Bhupendra Truong M.D. AT: AT Report ID: [id number] Reading Location: [id number] Gladys DELUNA IMG CT PROCEDURES [place] [...] Bhupendra Truong M.D. AT: AT Report ID: [id number] Reading Location: [id number] Procedure Note Bhupendra Truong MD - 07/19/2024 EXAM DESCRIPTION: CT RECON THORACIC AND LUMBAR SPINE WO CONTRAST (C); CTCHEST ABDOMEN PELVIS W CONTRAST REASON FOR STUDY: Wound leaking after spine stimulator placement yesterday PT AMBULATORY TO TRIAGE STATES HE [facility]. PT STATES IT HAS [...] Bhupendra Truong M.D. AT: AT Report ID: [id number] Reading Location: [id number] Gladys DELUNA IMG CT PROCEDURES Park [place] Result * eGFR (07/19/2024 9:58 PM CDT) eGFR [...] was last reviewed 2021. Testing performed by: [address] [address] Blood 07/19/2024 9:58 PM CDT 07/19/2024 10:00 PM CDT Gladys DELUNA LAB BLOOD ORDERABLES F inal Result [id number] Department [place] [address] * (ABNORMAL) Differential, auto (07/19/2024 9:58 PM CDT) Neutrophil abs 8.3(H) 1.5 - 6.5 K/cumm Comment:Testing performed by : [address] [address] Imm gran abs 0.0 0.0 - 0.1 K/cumm [facility] Comment:Testing performed by : [address] [address] Lymphocyte abs 2.0 0.8 - 3.3 K/cumm [facility] Comment:Testing performed by : [address] [address] Monocyte abs 0.8 0.2 - 0.8 K/cumm [facility] Comment:Testing performed by : [address] [address] Eosinophil abs 0.1 0.0 - 0.5 K/cumm [facility] Comment:Testing performed by : [address] [address] Basophil abs 0.0 0.0 - 0.1 K/cumm [facility] Comment:Testing performed by : [address] [address] Neutrophil pct 73.5 % [facility] Comment: Interpretive Data Percent cell count reference ranges are not reported, since discordance with absolute values may lead to misinterpretation of CBC data. Current Interpretive Data was last revised on 2017. Testing performed by: [address] [address] Imm gran pct 0.4 % [facility] Comment: Interpretive Data Percent cell count reference ranges are not reported, since discordance with absolute values may lead to misinterpretation of CBC data. Current Interpretive Data was last revised on 2017. Testing performed by: [address] [address] Lymphocyte pct 17.4 % [facility] Comment: Interpretive Data Percent cell count reference ranges are not reported, since discordance with absolute values may lead to misinterpretation of CBC data. Current Interpretive Data was last revised on 2017. Testing performed by: [address] [address] Monocyte pct 7.3 % [facility] Comment: Interpretive Data Percent cell count reference ranges are not reported, since discordance with absolute values may lead to misinterpretation of CBC data. Current Interpretive Data was last revised on 2017. Testing performed by: [address] [place]., [address] Eosinophil pct 1.1 % [facility] Comment: Interpretive Data Percent cell count reference ranges are not reported, since discordance with absolute values may lead to misinterpretation of CBC data. Current Interpretive Data was last revised on 2017. Testing performed by: [address] [address] Basophil pct 0.3 % [facility] Comment: Interpretive Data Percent cell count reference ranges are not reported, since discordance with absolute values may lead to misinterpretation of CBC data. Current Interpretive Data was last revised on 2017. Testing performed by: [address] [address] Blood 07/19/2024 9:58 PM CDT 07/19/2024 10:00 PM CDT Gladys DELUNA LAB BLOOD ORDERABLES F inal Result Performing Organization Address [facility]/ZIP Co de Phone Number [address] [employer] [place] [address] * Lactate (07/19/2024 9:58 PM CDT) Lactate 1.4 0.7 - 2.0 mmol/L Comment:Testing performed by : [address] [address] Blood 07/19/2024 9:58 PM CDT 07/19/2024 10:00 PM CDT Gladys DELUNA LAB BLOOD ORDERABLES F inal Result Performing Organization Address City/[facility]/ZIP Co de Phone Number [address] [address] * Comprehensive metabolic panel (07/19/2024 9:58 PM CDT) Sodium 141 135 - 145 mmol/L Comment:Testing performed by : [address] [address] Potassium, pl 4.1 3.3 - 4.9 mmol/L [facility] Comment:Testing performed by : [address] [address] Chloride 108 97 - 110 mmol/L [facility] Comment:Testing performed by : [address], [place]., [address] CO2 23 22 - 32 mmol/L [facility] Comment:Testing performed by : [address] [address] Anion gap 10 2 - 15 mmol/L [facility] Comment:Testing performed by : [address], [place]., [address] BUN 18 6 - 25 mg/dL [facility] Comment:Testing performed by : [address] [address] Creatinine 0.88 0.80 - 1.30 mg/dL [facility] Comment:Testing performed by : [address] [address] Glucose 136 70 - 199 mg/dL [facility] Comment: Interpretive Data Fasting glucose >/= 126 [...] was last revised 2022. Testing performed by: [address] [address] Calcium 9.6 8.5 - 10.3 mg/dL [facility] Comment:Testing performed by : [address] [address] Bilirubin, total 0.4 0.1 - 1.2 mg/dL [facility] Comment:Testing performed by : [address] [address] Protein, pl 7.3 6.5 - 8.5 g/dL [facility] Comment:Testing performed by : [address] [address] Albumin 4.2 3.5 - 5.0 g/dL [facility] Comment:Testing performed by : [address] [address] Alk phos 101 40 - 130 Units/L [facility] Comment:Testing performed by : [address] [address] ALT 14 7 - 55 Units/L [facility] Comment:Testing performed by : [address] [address] AST 24 10 - 50 Units/L [facility] Comment:Testing performed by : [address] [address] Blood 07/19/2024 9:58 PM CDT 07/19/2024 10:00 PM CDT Gladys DELUNA LAB BLOOD ORDERABLES F inal Result [facility] [address] Department [place] [address] * (ABNORMAL) CBC with auto differential (07/19/2024 9:58 PM CDT) [facility] WBC 11.4(H) 3.8 - 9.9 K/cumm Comment:Testing performed by : [address] [address] Hgb 13.1 13.0 - 17.5 g/dL [facility] Comment:Testing performed by : [address] [address] Hct 39.7 38.9 - 50.3 % [facility] Comment:Testing performed by : [address] [address] Plt 243 150 - 400 K/cumm [facility] Comment:Testing performed by : [address] [address] MPV 10.1 9.1 - 12.3 fL [facility] Comment:Testing performed by : [address] [address] RBC 4.42 4.30 - 5.80 M/cumm [facility] Comment:Testing performed by : [address], [address] MCV 89.8 81.3 - 96.4 fL [facility] Comment:Testing performed by : [address] [address] MCH 29.6 27.1 - 33.3 pg [facility] Comment:Testing performed by : [address], [address] MCHC 33.0 32.3 - 35.7 g/dL [facility] Comment:Testing performed by : [address], [address] RDW CV 13.5 11.1 - 14.9 % [facility] Comment:Testing performed by : [address], [address] RDW SD 45.0 35.7 - 48.1 fL [facility] Comment:Testing performed by : [address], [address] NRBC abs 0.00 0.00 - 0.01 K/cumm [facility] Comment:Testing performed by : [address] [address] Blood 07/19/2024 9:58 PM CDT 07/19/2024 10:00 PM CDT Gladys DELUNA LAB BLOOD ORDERABLES F inal Result [facility] [address] Department of Laboratories [place], [place] [id number] documented in this encounter Visit Diagnoses Diagnosis Postoperative complication of skin involving drainage from surgical wound- Primary documented in this encounter Administered Medications Inactive Administered Medications - up to 3 most recent administrations Medication Order MAR Action Action Date Dose Rate Site dexAMETHasone (DECADRON) preservative free solution 10 mg 10 mg, intravenous, Administer over 2 Minutes, Once, On Mon07/19/24 at 2151, For 1 dose Given 07/19/2024 10:09 PM CDT 10 mg diphenhydrAMINE (BENADRYL) 50 mg/mL injection 25 mg 25 mg, intravenous, Administer over 2 Minutes, Once, On Mon07/19/24 at 2151, For 1 dose, Indications: allergic reaction, extrapyramidal disease, Nausea and Vomiting, Urticaria, migraineIndications:allergic reaction,extrapyramidal disease,Nausea and Vomiting,Urticaria,migraine Given 07/19/2024 10:07 PM CDT 25 mg ioversoL (OPTIRAY 350) syringe 100 mL 100 mL, intravenous, Once in imaging, contrast, Starting on Mon07/19/24 at 2224, For 1 dose Contrast Given 07/19/2024 10:38 PM CDT 100 mL ketorolac (TORADOL) 30 mg/mL injection 15 mg 15 mg, intravenous, Once, On Mon07/19/24 at 2150, For 1 dose, For Adult IV push, administer over 15 seconds Given 07/19/2024 10:06 PM CDT 15 mg prochlorperazine (COMPAZINE) injection 5 mg 5 mg, intravenous, Administer over 2 Minutes, Once, On Mon07/19/24 at 215, For 1 dose Given 07/19/2024 10:08 PM CDT 5 mg sodium chloride 0.9% bolus 1,000 mL 1,000 mL, intravenous, Once, On Mon07/19/24 at 2150, For 1 dose New Bag 07/19/2024 10:06 PM CDT 1,000 mL documented in this encounter Active and Recently Administered Medications Times are shown in CDT. Scheduled Medication Order 07/18/2024 07/19/2024 07/20/2024 dexAMETHasone (DECADRON) preservative free solution 10 mg (COMPLETED) 10 mg, intravenous, Administer over 2 Minutes, Once, On Mon07/19/24 at 215, For 1 dose 2208 (Given - Provider: Macrina Harry RN) diphenhydrAMINE (BENADRYL) 50 mg/mL injection 25 mg (COMPLETED) 25 mg, intravenous, Administer over 2 Minutes, Once, On Mon07/19/24 at 215, For 1 dose, Indications: allergic reaction, extrapyramidal disease, Nausea and Vomiting, Urticaria, migraine 2206 (Given - Provider: Macrina e Piero, RN) ketorolac (TORADOL) 30 mg/mL injection 15 mg (COMPLETED) 15 mg, intravenous, Once, On Mon07/19/24 at 2151, For 1 dose, For Adult IV push, administer over 15 seconds 2205 (Given - Provider: Macrina Harry, KARELY) prochlorperazine (COMPAZINE) injection 5 mg (COMPLETED) 5 mg, intravenous, Administer over 2 Minutes, Once, On Mon07/19/24 at 2151, For 1 dose 2207 (Given - Provider: Macrina Harry, KARELY) sodium chloride 0.9% bolus 1,000 mL (COMPLETED) 1,000 mL, intravenous, Once, On Mon07/19/24 at 2151, For 1 dose 2205 (New Bag - Provider: Krishna Harry RN)2303 (Stopped - Provider: Krishna Harry RN) PRN Medication Order 07/18/2024 07/19/2024 07/20/2024 ioversoL (OPTIRAY 350) syringe 100 mL (COMPLETED) 100 mL, intravenous, Once in imaging, contrast, Starting on Mon07/19/24 at 2224, For 1 dose 2237 (Contrast Given - Provider: Teresa Martell RT) documented in this encounter Care Teams Metal Engineering Process Worker Relationship Specialty Start Date End Date Olayinka John MD PCP - General 12/29/16 Martha Masters MD [address] [facility], [place] [address] Consulting Physician Pain Management 06/16/21 documented as of this encounter
--- OUTSIDE RECORDS SUMMARY | 2024-07-21 16:17 | XMS_ITS | Encounter Summary ---
Author Organization [facility] Address [address] [place] [address] Care Team Providers Care Industrial Waste Inspector Name Role Phone Olayinka John MD Primary Care Provider Encounter Details Date Type Department Care Team (Late st Contact Info) Description 07/11/2021 MyChart Message Enc [facility] Family & Internal Medicine [facility] [address] [place] [address] Olayinka John MD [address] [place] [address] Esomeprazol directions Social History Tobacco Use Types Packs/Day Years [...] Sex Assigned at Male 03/15/2018 10:58 AM SUPERVISOR PACKING ROOM Legal Sex Male 7:04 PM CDT Gender Identity Male 03/15/2018 10:58 AM SUPERVISOR PACKING ROOM Sexual Orientation Straight 03/15/2018 10 :58 AM SUPERVISOR PACKING ROOM 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 [place] [address] Shaun Frost MD [address] [address] 08/29/2024 1:30 PM CDT - 08/29/2024 2:00 PM CDT Surgery [facility] [address] Shaun Frost MD [address] [address] COLONOSCOPY 11/19/2024 1:20 PM CDT Office Visit [facility] Family & Internal Medicine [address] [phone] Olayinka John MD [address] [place] [address] Scheduled Procedures Name Priority Associated Diagnoses Date/Ti me COLONOSCOPY Screening for colon cancer Encounter for colonoscopy due to history of adenomatous colonic polyps 08/29/2024 1:30 PM CDT documented as of this encounter Visit Diagnoses Not on filedocumented in this encounter Additional Health Concerns Assessment Noted Time PHQ-9 Depression Total Score: 0 05/26/19 22 10:13 AM SUPERVISOR PACKING ROOM documented as of this encounter Care Teams Industrial Waste Inspector Relationship Specialty Start Date End Date Olayinka John MD [address] [place] [address] PCP - General INTERNAL MEDICINE 06/15/17 documented as of this encounter
--- OUTSIDE RECORDS SUMMARY | 2024-07-21 16:17 | XMS_ITS | Encounter Summary ---
Author Organization [facility] Address [address] [place] [address] Care Team Providers Care Ceramic Maker Demonstrator Name Role Phone Olayinka John MD Primary Care Provider [phone] Olayinka John MD Unavailable [phone] Encounter Details Date Type Department Care Team (Latest Contact Info) Description 12/28/2017 Abstract [facility] Md, Generic Conversion, Social History Tobacco Use Types Packs/Day Years Used Date Smoking Tobacco: Never Assessed Sex and Gender Information Value Date Recorded Sex Assigned at Male 03/15/2018 10:58 AM MANAGER MEAT Legal Sex Male 7:04 PM CDT Gender Identity Male 03/15/2018 10:58 AM MANAGER MEAT Sexual Orientation Straight 03/15/2018 10 :58 AM MANAGER MEAT documented as of this encounter Plan of Treatment Upcoming Encounters Date Type Department Care Team (Late st Contact Info) Description 08/29/2024 1:30 PM CDT Hospital Encounter [facility] [place] [address] Shaun Frost MD [address] [address] 08/29/2024 1:30 PM CDT - 08/29/2024 2:00 PM CDT Surgery [facility] [place], [place] [address] hSaun Frost MD [address] [place] [address] COLONOSCOPY 11/19/2024 1:20 PM CDT Office Visit [facility] Family & Internal Medicine [facility] [address] [place] [address] Olayinka John MD [address] [place] [address] Scheduled Procedures Name Priority Associated Diagnoses Date/Ti me COLONOSCOPY Screening for colon cancer Encounter for colonoscopy due to history of adenomatous colonic polyps 08/29/2024 1:30 PM CDT documented as of this encounter Visit Diagnoses Not on filedocumented in this encounter Care Teams Ceramic Maker Demonstrator Relationship Specialty Start Date End Date Olayinka John MD [address] [place] [address] PCP - General INTERNAL MEDICINE 06/15/17 Olayinka John MD [address] [place] [address] PCP - Med Group - MSSP Attributed Provider 05/01/15 04/30/21 documented as of this encounter
--- OUTSIDE RECORDS SUMMARY | 2024-07-21 16:17 | XMS_ITS | Encounter Summary ---
Author Organization [facility] Address [address] [place] [address] Care Team Providers Care Water And Fire Technician Name Role Phone Olayinka John MD Primary Care Provider [phone] Olayinka John MD Unavailable [phone] Reason for Referral * Surgical (Routine) - Closed Specialty Diagnoses / Procedures Referred By Migel morales Referred To Contact Procedures Case request operating room: BLOCK MEDIAL BRANCH LUMBAR L2, L3, L4 Donna Schmid APNP Phone: tel: fax: Referral ID Status Reason Start Date Expiration Date Visits Re quested Visits Authorized [id number] Closed 06/22/2020 07/20/2021 1 1 MANAGER Encounter Details Date Type Department Care Team (Late st Contact Info) Description 06/22/2020 Prep for Procedure [facility] [place] [address] [id number] Donna Schmid APNP [address] [place] [phone] Social History Tobacco Use Types Packs/Day Years Used Date Smoking Tobacco: Every Day Cigarettes 0.5 40 Smokeless Tobacco: Never Comments:Patient cut smoking to 1/2 ppd Alcohol Use Standard Drinks/Week Comments No 0 (1 standard drink = 0.6 oz pur e alcohol) AUDIT-C Answer Date Recorded Frequency of Alcohol Consumption Never 04/10/2019 Average Number of Drinks Not asked 019 Frequency of Binge Drinking Not asked 03/31 PHQ-2 Answer Date Recorded PHQ-2 Score - If the patient scores above 3, please move on to questions 3-9 0 05/22/2020 Sex and Gender Information Value Date Recorded Sex Assigned at Male 03/15/2018 10:58 AM TIRE MANAGER Legal Sex Male 7:04 PM CDT Gender Identity Male 03/15/2018 10:58 AM TIRE MANAGER Sexual Orientation Straight 03/15/2018 10 :58 AM TIRE MANAGER 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 No / Unsure 06/25/2020 12:00 PM TIRE MANAGER documented as of this encounter Plan of Treatment Upcoming Encounters Date Type Department Care Team (Late st Contact Info) Description 08/29/2024 1:30 PM CDT Hospital Encounter [facility] [place] [address] Shaun Frost MD [address] [address] 08/29/2024 1:30 PM CDT - 08/29/2024 2:00 PM CDT Surgery [facility] Endo/[place] [address] Shaun Frost MD [address] [address] COLONOSCOPY 11/19/2024 1:20 PM CDT Office Visit [facility] Family & Internal Medicine [address] [address] Olayinka John MD [address] [place] [address] Scheduled Orders Name Type Priority Associated Diagnoses Orde r Schedule Case request operating room: BLOCK MEDIAL BRANCH LUMBAR L2, L3, L4 Case Request Routine Once for 1 Occ urrences starting 06/22/2020 until 06/22/2020 Scheduled Procedures Name Priority Associated Diagnoses Date/Ti ny COLONOSCOPY Screening for colon cancer Encounter for colonoscopy due to history of adenomatous colonic polyps 08/29/2024 1:30 PM CDT documented as of this encounter Visit Diagnoses Not on filedocumented in this encounter Additional Health Concerns Assessment Noted Time PHQ-9 Depression Total Score: 0 05/22/19 11:15 AM TIRE MANAGER documented as of this encounter Care Teams Water And Fire Technician Relationship Specialty Start Date End Date Olayinka John MD [address] [place] [address] PCP - General INTERNAL MEDICINE 06/15/17 Olayinka John MD [address] [place] [address] PCP - Med Group - MSSP Attributed Provider 05/01/15 04/30/21 documented as of this encounter
--- OUTSIDE RECORDS SUMMARY | 2024-07-21 16:17 | XMS_ITS | Encounter Summary ---
Author Organization [facility] Address [address] [place] [address] Care Team Providers Care Contract Graphic Designer Name Role Phone Olayinka John MD Primary Care Provider [phone] Encounter Details Date Type Department Care Team (Late st Contact Info) Description 12/26/[address] [facility] Family & Internal Medicine [facility] [address] [place] [address] Olayinka John MD [facility] [place] [address] Colonoscopy Social History Tobacco Use Types Packs/Day Years Used Date Smoking Tobacco: Every Day Cigarettes 1 58.2 Started: 1965 Smokeless Tobacco: Never Comments:Recommended smoking cessation as well as benefits of giving up smoking with patient; provider to chief counsel Alcohol Use Standard Drinks/Week Comments Yes 3.3 (1 standard drink = 0.6 oz p ure alcohol) 2 beers a week AUDIT-C Answer Date Recorded Frequency of Alcohol Consumption Never 04/10/2019 Average Number of Drinks Not asked 019 Frequency of Binge Drinking Not asked 03/31 PHQ-2 Answer Date Recorded Patient Health Questionnaire-2 Score 0 06/30/2022 Sex and Gender Information Value Date Recorded Sex Assigned at Male 03/15/2018 10:58 AM FIBER GLASS WORKER Legal Sex Male 7:04 PM CDT Gender Identity Male 03/15/2018 10:58 AM FIBER GLASS WORKER Sexual Orientation Straight 03/15/2018 10 :58 AM FIBER GLASS WORKER 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 [place] [address] Shaun Frost MD [facility] [address] [place] [address] 08/29/2024 1:30 PM CDT - 08/29/2024 2:00 PM CDT Surgery [facility] [address] Shaun Frost MD [facility] [address] [place] [address] COLONOSCOPY 11/19/2024 1:20 PM CDT Office Visit [facility] Family & Internal Medicine [address] [address] Olayinka John MD [address] [place] [address] Scheduled Procedures Name Priority Associated Diagnoses Date/Ti me COLONOSCOPY Screening for colon cancer Encounter for colonoscopy due to history of adenomatous colonic polyps 08/29/2024 1:30 PM CDT documented as of this encounter Visit Diagnoses Not on filedocumented in this encounter Additional Health Concerns Assessment Noted Time PHQ-9 Depression Total Score: 0 07/01/19 23 2:14 PM FIBER GLASS WORKER documented as of this encounter Care Teams Contract Graphic Designer Relationship Specialty Start Date End Date Olayinka John MD [address] [place] [address] PCP - General INTERNAL MEDICINE 06/15/17 documented as of this encounter
--- OUTSIDE RECORDS SUMMARY | 2024-07-21 16:17 | XMS_ITS | Encounter Summary ---
Author Organization [facility] Address [address] [place] [address] Care Team Providers Care Market Relationship Manager Name Role Phone Olayinka John MD Primary Care Provider Encounter Details Date Type Department Care Team (Late st Contact Info) Description 09/02/2021 MyChart Message Enc [facility] Family & Internal Medicine [facility] [address] [place] [address] Olayinka John MD [address] [place] [address] Blood Pressure problems Social History Tobacco Use Types Packs/Day Years [...] Sex Assigned at Male 03/15/2018 10:58 AM PROFESSIONAL NURSING ASSISTANT Legal Sex Male 7:04 PM CDT Gender Identity Male 03/15/2018 10:58 AM PROFESSIONAL NURSING ASSISTANT Sexual Orientation Straight 03/15/2018 10 :58 AM PROFESSIONAL NURSING ASSISTANT 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 No / Unsure 08/12/2021 12:30 PM CDT documented as of this encounter Plan of Treatment Upcoming Encounters Date Type Department Care Team (Late st Contact Info) Description 08/29/2024 1:30 PM CDT Hospital Encounter [facility] [place] [address] Shaun Frost MD [address] [address] 08/29/2024 1:30 PM CDT - 08/29/2024 2:00 PM CDT Surgery [facility] [place]o/[place] [address] Shaun Frost MD [address] [address] COLONOSCOPY 11/19/2024 1:20 PM CDT Office Visit [facility] Family & Internal Medicine [address] [address] Olayinka John MD [address] [place] [address] Scheduled Procedures Name Priority Associated Diagnoses Date/Ti me COLONOSCOPY Screening for colon cancer Encounter for colonoscopy due to history of adenomatous colonic polyps 08/29/2024 1:30 PM CDT documented as of this encounter Visit Diagnoses Not on filedocumented in this encounter Additional Health Concerns Assessment Noted Time PHQ-9 Depression Total Score: 0 05/26/19 10:13 AM PROFESSIONAL NURSING ASSISTANT documented as of this encounter Care Teams Market Relationship Manager Relationship Specialty Start Date End Date Olayinka John MD [address] [place] [address] PCP - General INTERNAL MEDICINE 06/15/17 documented as of this encounter
--- OUTSIDE RECORDS SUMMARY | 2024-07-21 16:17 | XMS_ITS | Encounter Summary ---
Author Organization [facility] Address [address] [place] [address] Care Team Providers Care Automobile Glass Technician Name Role Phone Olayinka John MD Primary Care Provider [phone] Encounter Details Date Type Department Care Team (Late st Contact Info) Description 06/09/2021 MyChart Message Enc [facility] Family & Internal Medicine [facility] [address] [place] [address] Olayinka John MD [address] [place] [address] Urinalysis Results Social History Tobacco Use Types Packs/Day Years [...] Sex Assigned at Male 03/15/2018 10:58 AM LAMP SHADE JOINER Legal Sex Male 7:04 PM CDT Gender Identity Male 03/15/2018 10:58 AM LAMP SHADE JOINER Sexual Orientation Straight 03/15/2018 10 :58 AM LAMP SHADE JOINER 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 No / Unsure 06/08/2021 12:55 PM LAMP SHADE JOINER documented as of this encounter Progress Notes * KALPESH Irene - 06/10/2021 12:55 PM CST No because his culture came back normal/negative SHADE JOINER documented in this encounter Plan of Treatment Upcoming Encounters Date Type Department Care Team (Late st Contact Info) Description 08/29/2024 1:30 PM CDT Hospital Encounter [facility] [place] [address] Shaun Frost MD [address] [address] 08/29/2024 1:30 PM CDT - 08/29/2024 2:00 PM CDT Surgery [facility] [place] [address] Shaun Frost MD [address] [address] COLONOSCOPY 11/19/2024 1:20 PM CDT Office Visit [facility] Family & Internal Medicine - [place] [address] [place] [phone] Olayinka John MD [address] [place] [address] Scheduled Procedures Name Priority Associated Diagnoses Date/Ti mo COLONOSCOPY Screening for colon cancer Encounter for colonoscopy due to history of adenomatous colonic polyps 08/29/2024 1:30 PM CDT documented as of this encounter Visit Diagnoses Not on filedocumented in this encounter Additional Health Concerns Assessment Noted Time PHQ-9 Depression Total Score: 0 05/26/19 10:13 AM LAMP SHADE JOINER documented as of this encounter Care Teams Automobile Glass Technician Relationship Specialty Start Date End Date Olayinka John MD [address] [place] [address] PCP - General INTERNAL MEDICINE 06/15/17 documented as of this encounter
--- OUTSIDE RECORDS SUMMARY | 2024-07-21 16:17 | XMS_ITS | Encounter Summary ---
Author Organization [facility] Address [address] [place] [address] Care Team Providers Care Personal Injury Litigation Paralegal Name Role Phone Olayinka John MD Primary Care Provider [phone] Olayinka John MD Unavailable [phone] Encounter Details Date Type Department Care Team (Late st Contact Info) Description 05/25/2020 MyCWhat the Trendt Message Enc [facility] Family & Internal Medicine [place] [address] [place] [address] Olayinka John MD [address] [place] [address] RE: Question Social History Tobacco Use Types Packs/Day Years [...] Sex Assigned at Male 03/15/2018 10:58 AM RECIPROCATING DRILL OPERATOR Legal Sex Male 7:04 PM CDT Gender Identity Male 03/15/2018 10:58 AM RECIPROCATING DRILL OPERATOR Sexual Orientation Straight 03/15/2018 10 :58 AM RECIPROCATING DRILL OPERATOR COVID-19 Exposure Response Date Recorded In the last month, have you been in contact with someone who was confirmed or suspected to have Coronavirus / COVID-19? No / Unsure 05/28/2020 1:52 PM RECIPROCATING DRILL OPERATOR documented as of this encounter Progress Notes * Olayinka John MD - 05/25/2020 4:54 PM CST It is being done by age and alphabetically, keep watching his MyChart and also the [facility] website. PROCATING DRILL OPERATOR documented in this encounter Plan of Treatment Upcoming Encounters Date Type Department Care Team (Late st Contact Info) Description 08/29/2024 1:30 PM CDT Hospital Encounter [facility] [place] [address] Shaun Frost MD [address] [address] 08/29/2024 1:30 PM CDT - 08/29/2024 2:00 PM CDT Surgery [facility] Endo/[place] [address] Shaun Frost MD [address] [address] COLONOSCOPY 11/19/2024 1:20 PM CDT Office Visit [facility] Group Family & Internal Medicine - [place] [address] [place] [phone] Olayinka John MD [address] [place] [address] Scheduled Procedures Name Priority Associated Diagnoses Date/Ti me COLONOSCOPY Screening for colon cancer Encounter for colonoscopy due to history of adenomatous colonic polyps 08/29/2024 1:30 PM CDT documented as of this encounter Visit Diagnoses Not on filedocumented in this encounter Additional Health Concerns Assessment Noted Time PHQ-9 Depression Total Score: 0 05/22/19 21 11:15 AM RECIPROCATING DRILL OPERATOR documented as of this encounter Care Teams Personal Injury Litigation Paralegal Relationship Specialty Start Date End Date Olayinka John MD [address] [place] [address] PCP - General INTERNAL MEDICINE 06/15/17 Olayinka John MD [address] [place] [address] PCP - Med Group - MSSP Attributed Provider 05/01/15 04/30/21 documented as of this encounter
--- OUTSIDE RECORDS SUMMARY | 2024-07-21 16:17 | XMS_ITS | Encounter Summary ---
Author Organization [facility] Address [address] [place] [address] Care Team Providers Care Police Matron Name Role Phone Olayinka John MD Primary Care Provider [phone] Encounter Details Date Type Department Care Team (Late st Contact Info) Description 04/27/2021 Lab Requisition [facility] DermPath Lab [address] [place] [id number] Benitez Jimenez MD [address] [place] [address] Social History Tobacco Use Types Packs/Day Years Used Date Smoking Tobacco: Every Day Cigarettes Smokeless Tobacco: Never Alcohol Use Standard Drinks/Week Comments Yes 0 [...] Procedure Name Priority Date/Time Associated Diagnosis Comments DERMATOPATHOLOGY Routine 04/21/2021 12:0 0 AM FUSE MAKER documented in this encounter Results * DERMATOPATHOLOGY (04/21/2021 12:00 AM FUSE MAKER) Case Report Dermatopathology Report Case: [id number] Authorizing Provider: Benitez Jimenez MD Collected: 04/21/2021 12:00 AM Ordering Location: [facility] DermPath Lab Received: 04/27/2021 05:40 AM Pathologist: Romy Guerrero MD Specimen: Skin, left ventral forearm 1:02 PM [facility] DERMATOPATHOLOGY LABORATORY Final Diagnosis Specimen A. SKIN, left ventral forearm: CHRONIC SPONGIOTIC DERMATITIS (L30.8) (see microscopic description and comment) 1:02 PM [facility] DERMATOPATHOLOGY LABORATORY Clinical History R/O drug eruption. 1:02 PM [facility] DERMATOPATHOLOGY [facility]ORAT[facility] Gross Description Specimen A: Received is one formalin filled container labeled with the patient's name and designated left ventral forearm. The specimen consists of a shave biopsy measuring [id number]. Jar 0. 1:02 PM [facility] DERMATOPATHOLOGY [facility]ORATORY Microscopic Description Specimen A. SKIN, left ventral forearm: There is focal parakeratosis and mild spongiosis of the epidermis. In the dermis there is a mainly superficial perivascular lymphoid infiltrate. Grocott's methenamine silver (GMS) stain is negative for fungal elements in the sections examined. COMMENT: These histological findings can be seen in an eczematous dermatitis. 1:02 PM [facility] DERMATOPATHOLOGY [facility]ORATORY Disclaimer An external and internal positive and negative controls are appropriate for the histochemical, immunohistochemical and immunofluorescence stain(s) in this case (if any), except where stated explicitly. The performance characteristics of the stain(s) cited in this report were developed and its performance characteristic determined by the Dermatopathology Laboratory at [facility], directed by Dr. Christine Bustamante. These tests need not be, and therefore are not, approved by the [place] Food and Drug Administration. The tests are used for clinical purposes. Billing Codes Specimen Charges Stain Charges 65249 1 26558 1 1 1:02 PM [facility] DERMATOPATHOLOGY LABORATORY Embedded Images 1:02 PM [facility] DERMATOPATHOLOGY [facility]ORATORY Pathology/Cytolog y TISSUE SPECIMEN FROM SKIN / Unknown 04/21/2021 04/27/2021 5:40 AM [facility] Benitez Jimenez MD LAB - PATHOLOGY/CYTO LOGY ORDERABLES DERMATOPATHOLOGY LABORATORY [facility] - Department of Dermatology [address], [address] [phone] documented in this encounter Visit Diagnoses Not on filedocumented in this encounter Care Teams Police Matron Relationship Specialty Start Date End Date Olayinka John MD [address] [place] [address] PCP - General 01/07/21 documented as of this encounter
--- OUTSIDE RECORDS SUMMARY | 2024-07-21 16:17 | XMS_ITS | Encounter Summary ---
Author Organization [facility] Address [address] [place] [address] Care Team Providers Care Grainer Machine Name Role Phone Olayinka John MD Primary Care Provider [phone] Olayinka John MD Unavailable [phone] Encounter Details Date Type Department Care Team (Late st Contact Info) Description 10/07/2020 [employer] Message Enc [facility] Family & Internal Medicine [id number] [place] [address] Olayinka John MD [address] [place] [address] RE: Medication Questions Social History Tobacco Use Types Packs/Day Years Used Date Smoking Tobacco: Every Day Cigarettes 0.5 40 Smokeless Tobacco: Never Comments:Patient cut smoking to 1/2 ppd Alcohol Use Standard Drinks/Week Comments Yes 3.3 [...] please move on to questions 3-9 0 09/14/2020 Sex and Gender Information Value Date Recorded Sex Assigned at Male 03/15/2018 10:58 AM ADMINISTRATIVE SERVICES COORDINATOR Legal Sex Male 7:04 PM CDT Gender Identity Male 03/15/2018 10:58 AM ADMINISTRATIVE SERVICES COORDINATOR Sexual Orientation Straight 03/15/2018 10 :58 AM ADMINISTRATIVE SERVICES COORDINATOR 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 No / Unsure 10/06/2020 1:49 PM CDT documented as of this encounter Progress Notes * Olayinka John MD - 10/07/2020 4:03 PM CDT Okay to increase to bid documented in this encounter Plan of Treatment Upcoming Encounters Date Type Department Care Team (Late st Contact Info) Description 08/29/2024 1:30 PM CDT Hospital Encounter [facility] [place] [address] Shaun Frost MD [address] [address] 08/29/2024 1:30 PM CDT - 08/29/2024 2:00 PM CDT Surgery [facility] Endo/[place] [address] Shaun Frost MD [address] [address] COLONOSCOPY 11/19/2024 1:20 PM CDT Office Visit [facility] Family & Internal Medicine - [address] [phone] Olayinka John MD [address] [place] [address] Scheduled Procedures Name Priority Associated Diagnoses Date/Ti me COLONOSCOPY Screening for colon cancer Encounter for colonoscopy due to history of adenomatous colonic polyps 08/29/2024 1:30 PM CDT documented as of this encounter Visit Diagnoses Not on filedocumented in this encounter Additional Health Concerns Assessment Noted Time PHQ-9 Depression Total Score: 0 09/15/19 2:50 PM CDT documented as of this encounter Care Teams Grainer Machine Relationship Specialty Start Date End Date Olayinka John MD [address] [place] [address] PCP - General INTERNAL MEDICINE 06/15/17 Olayinka John MD [address] [place] [address] PCP - Med Group - MSS[facility] Attributed Provider 05/01/15 04/30/21 documented as of this encounter
--- OUTSIDE RECORDS SUMMARY | 2024-07-21 16:17 | XMS_ITS | Encounter Summary ---
Author Organization [facility] Health Address [address] [place] [address] Care Team Providers Care Independent Driver Name Role Phone Olayinka John MD Primary Care Provider [phone] Encounter Details Date Type Department Care Team (Late st Contact Info) Description 03/03/2021 [facility] Outpatient Visit [facility] [address] [place] [address] Inna Miramontes, TRACTOR DRILL OPERATOR-BATTERY PARTS ASSEMBLER [address] [place] [address] Social History Tobacco Use Types Packs/Day Years [...] on filedocumented in this encounter Care Teams Independent Driver Relationship Specialty Start Date End Date Olayinka Jhon MD [address] [place] [address] PCP - General 01/07/21 documented as of this encounter
--- OUTSIDE RECORDS SUMMARY | 2024-07-21 16:18 | XMS_ITS | Encounter Summary ---
Author Organization [facility] Facility Care Team Providers Care Hammer Runner Name Role Phone Olayinka John MD Primary Care Provider [phone] Martha Masters MD Unavailable Martha Masters MD Unavailable Encounter Details Date Type Department Care Team (Latest Contact Info) Description 06/22/2017 Orders Only [facility] ProviderDawit MD [address] [place] [address] Social History Tobacco Use Types Packs/Day Years Used Date Smoking Tobacco: Former Sex and Gender Information Value Date Recorded Sex Assigned at Not on file Legal Sex Male 2:24 AM TRANSPORTATION MAINTENANCE WORKER Gender Identity Not on file Sexual Orientation Not on file documented as of this encounter Plan of Treatment Not on file documented as of this encounter Procedures Procedure Name Priority Date/Time Associated Diagnosis Comments PROCEDURE - RESULT 06/22/2017 12 :00 AM TRANSPORTATION MAINTENANCE WORKER documented in this encounter Results * PROCEDURE - RESULT (06/22/2017 12:00 AM TRANSPORTATION MAINTENANCE WORKER) Narrative 06/22/2017 12:00 AM TRANSPORTATION MAINTENANCE WORKER Ordered by an unspecified provider. us Historical Provider Final Res ult documented in this encounter Visit Diagnoses Not on filedocumented in this encounter Additional Health Concerns Infection Onset Date Last Indicated Resolved Time MRSA 08/20/2012 08/19/2012 12/16/2020 5:00 AM CDT documented as of this encounter Care Teams Hammer Runner Relationship Specialty Start Date End Date Olayinka John MD PCP - General 12/29/16 Martha Masters MD [address] [facility], [address] [address] Consulting Physician Pain Management 06/16/21 10/10/21 Martha Masters MD [address] [facility], [address] [address] Consulting Physician Pain Management 06/16/21 documented as of this encounter
--- OUTSIDE RECORDS SUMMARY | 2024-07-21 16:18 | XMS_ITS | Encounter Summary ---
Author Organization [facility] Facility Care Team Providers Care Director Of Hotel Operations Name Role Phone Olayinka John MD Primary Care Provider [phone] Martha Masters MD Unavailable Martha Masters MD Unavailable Encounter Details Date Type Department Care Team (Latest Contact Info) Description 07/27/2017 Orders Only [facility] ProviderDawit MD [address] [place] [address] Social History Tobacco Use Types Packs/Day Years Used Date Smoking Tobacco: Former Sex and Gender Information Value Date Recorded Sex Assigned at Not on file Legal Sex Male 2:24 AM [employer]IL[employer] AUTHOR Gender Identity Not on file Sexual Orientation Not on file documented as of this encounter Plan of Treatment Not on file documented as of this encounter Procedures Procedure Name Priority Date/Time Associated Diagnosis Comments PROCEDURE - RESULT 07/26/2017 12 :00 AM CDT documented in this encounter Results * PROCEDURE - RESULT (07/26/2017 12:00 AM CDT) Narrative 07/26/2017 12:00 AM CDT Ordered by an unspecified provider. us Historical Provider Final Res ult documented in this encounter Visit Diagnoses Not on filedocumented in this encounter Additional Health Concerns Infection Onset Date Last Indicated Resolved Time MRSA 08/20/2012 08/19/2012 12/16/2020 5:00 AM CDT documented as of this encounter Care Teams Director Of Hotel Operations Relationship Specialty Start Date End Date Olayinka John MD PCP - General 12/29/16 Martha Masters MD [address] [facility], [address] [address] Consulting Physician Pain Management 06/16/21 10/10/21 Martha Masters MD [address] [facility], [address] [address] Consulting Physician Pain Management 06/16/21 documented as of this encounter
--- NOTE | 2024-07-21 16:29 | ED.GENADULT ---
HPI - General Adult General Chief complaint: Unspecified Stated complaint: recent surgery, draining Time Seen by Provider: 07/21/24 16:06 Source: patient and family Mode of arrival: ambulatory Limitations: no limitations History of Present Illness HPI narrative: 74 YEARS OLD WHITE MALE STATUS POST BACK STIMULATOR REPLACEMENT LAST MONDAY BY DR. MOREIRA, ON MONDAY PATIENT DEVELOPED HEADACHE WHICH GOT BETTER WITH TIME KNOWN AND CLEAR FLUID LEAKING OUT OF THE STIMULATOR AREA. PATIENT WENT TO [facility], UNDERWENT BLOOD WORKUP INCLUDING CBC, CMP, LACTATE AND ALSO HAD CT CHEST ABDOMEN PELVIS WITH IV CONTRAST, PATIENT RECEIVED DECADRON 10 MG, BENADRYL 50 MG, TORADOL 15 MG, COMPAZINE 5 MG, 1 L OF FLUID OF NORMAL SALINE. 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 SUBTLE DAY PATIENT KEPT HAVING HEADACHE AND FLUID STILL LEAKING, MONDAY WHICH IS TODAY PATIENT WORKUP WITH [facility] AND HAVE TROUBLE HEARING AND FLUID STILL LEAKING. Review of Systems Review of Systems: All systems reviewed & are unremarkable except as noted in HPI and below Exam Narrative: GENERAL APPEARANCE: WELL-DEVELOPED, WELL-NOURISHED SKIN: NORMAL COLOR HEAD: NORMOCEPHALIC, NONTRAUMATIC EYES: CLEAR CONJUNCTIVA ENT: OROPHARYNX NORMAL, EARS NORMAL, NOSE NORMAL NECK: SUPPLE, NONTENDER CHEST AND RESPIRATORY: AIRWAY PATENT, NO RESPIRATORY DISTRESS, NO ACCESSORY MUSCLE USE HEART: REGULAR RATE/RHYTHM ABDOMEN: SOFT, NONTENDER, NO ORGANOMEGALY, QUIET BOWEL SOUNDS VASCULAR: NORMAL PERIPHERAL PULSES, NORMAL CAPILLARY REFILL. MUSCULOSKELETAL: NORMAL RANGE OF MOTION, CLEAR LIQUID LEAKING OUT OF THE THORACOLUMBAR AREA MIDLINE, NEUROLOGIC: ALERT AND ORIENTED ?3, MANAGER SOCIAL IS NORMAL TESTED, NO GROSS MOTOR DEFICIT Course Reevaluation(s) Reevaluation #1: DR JUAREZ, REPORTS THAT SHE SPOKE TO DR. PEARSON WHO REQUESTED PATIENT TO GO TO [facility] NOW BECAUSE HE WILL BE AVAILABLE TOMORROW TO TAKE CARE OF HIM OVER THERE IF THERE IS NO BED AVAILABLE RIGHT NOW PATIENT CAN GO THERE ON HIS OWN BECAUSE HE NEED TO BE ADMITTED TO [facility] Date: 07/21/24 Consultations Consultation #1: DR BETANCOURT HOSPITALIST AT [facility] WHO ACCEPTED PATIENT TRANSFER Date: 07/21/24 Time: 18:21 Vital Signs Vital signs: Vital Signs Temperature 36.7 C 07/21/24 15:32 Pulse Rate 81 07/21/24 15:32 Respiratory Rate 19 07/21/24 15:32 Blood Pressure 154/76 H 07/21/24 15:32 Pulse Oximetry 100 07/21/24 15:32 Oxygen Delivery Room Air 07/21/24 15:32 Temperature 36.7 C 07/21/24 15:32 Pulse Rate 81 07/21/24 15:32 Respiratory Rate 19 07/21/24 15:32 Blood Pressure 154/76 H 07/21/24 15:32 Pulse Oximetry 100 07/21/24 15:32 Oxygen Delivery Room Air 07/21/24 15:32 Medical Decision Making MDM Narrative Medical decision making narrative: PATIENT CAME TO THE ED WITH HEADACHE AND HEARING TROUBLE AND SPINAL FLUID LEAKING OUT OF THE BACK STIMULATOR SITE. VITAL SIGNS ARE STABLE DIFFERENTIAL DIAGNOSIS INCLUDE POST LUMBAR PUNCTURE HEADACHE, CEREBROSPINAL FLUID LEAK MORE THAN CEREBROSPINAL FLUID PRODUCTION CAUSING THE ABOVE SYMPTOMS BLOOD WORKUP TODAY INCLUDES CBC AND CMP SHOWED NO SIGNIFICANT ABNORMALITIES PATIENT RECEIVED 1 L OF NORMAL SALINE IV PATIENT NEEDS TO GO TO [facility] TODAY TO BE EVALUATED BY DR. PEARSON TOMORROW. DISCUSSED WITH DR. Juarez [facility], TRANSIT FAILURE TO [facility], ACCEPTED BY THE HOSPITALIST DR. BETANCOURT Differential Diagnosis Differential Diagnosis: As above Vital Signs Vital Signs: Vital Signs Temperature 36.7 C 07/21/24 15:32 Pulse Rate 81 07/21/24 15:32 Respiratory Rate 19 07/21/24 15:32 Blood Pressure 154/76 H 07/21/24 15:32 Pulse Oximetry 100 07/21/24 15:32 Oxygen Delivery Room Air 07/21/24 15:32 Temperature 36.7 C 07/21/24 15:32 Pulse Rate 81 07/21/24 15:32 Respiratory Rate 19 07/21/24 15:32 Blood Pressure 154/76 H 07/21/24 15:32 Pulse Oximetry 100 07/21/24 15:32 Oxygen Delivery Room Air 07/21/24 15:32 Lab Data 07/21/24 17:44 07/21/24 17:44 Labs: Lab Results 07/21/24 Range/Units 17:44 WBC 8.1 (4.5-10.0) K/mm3 RBC 4.43 L (4.6-6.20) M/mm3 Hgb 13.3 L (14.0-18.0) g/dL Hct 40.2 L (42.0-52.0) % MCV 90.7 (80-100) fl MCH 30.0 (26-34) pg MCHC 33.1 (32-36) g/dl RDW 13.7 (11.5-14.5) % Plt Count 223 (150-375) k/mm3 MPV 10.5 H (7.4-10.4) fl Immature Gran % (Auto) 0.4 (0-0.5) % Neut % (Auto) 66.5 (45.5-73.1) % Lymph % (Auto) 25.1 (18.3-44.2) % Prowers % (Auto) 6.3 (2.6-8.5) % Eos % (Auto) 1.5 (0-4.4) % Baso % (Auto) 0.2 (0.2-1.2) % Lymph # (Auto) 2.03 (0.9-3.2) K/mm3 Prowers # (Auto) 0.5 (0.1-0.6) K/mm3 Eos # (Auto) 0.1 (0-0.3) K/mm3 Baso # (Auto) 0.0 (0.0-0.1) K/mm3 Abs Immat Gran (auto) 0.03 (0.00-0.031) K/mm3 Absolute Neuts (auto) 5.4 (1.3-6.7) K/mm3 Absolute Nucleated RBC 0.000 (0.0-0.012) K/mm3 Nucleated RBC % 0.0 (0.0-0.2) % Sodium 141 (137-145) mmol/L Potassium 3.8 (3.4-5.0) mmol/L Chloride 105 (98-107) mmol/L Carbon Dioxide 27 (22-30) mmol/L Anion Gap 9 (4-12) mmol/L BUN 15 (9-20) mg/dL Creatinine 0.72 (0.7-1.3) mg/dL Estim Creat Clear Calc 100 ml/min Estimated GFR > 60 (59 - ) Glucose 99 (65-110) mg/dL Calcium 9.4 (8.4-10.2) mg/dL Total Bilirubin 0.5 (0.2-1.3) mg/dL AST 22 (17-59) U/L ALT 18 (6-50) U/L Alkaline Phosphatase 98 (38-126) U/L Total Protein 7.0 (6.3-8.2) g/dL Albumin 4.2 (3.5-5.1) g/dL Critical Care Time Critical Care Time Critical Care Time: No Discharge Plan Discharge Clinical Impression: Headache, post-lumbar puncture Patient Disposition: Acute Care Hospital Condition: Stable Additional Instructions: Transfers to [facility] Patient Language: Azeri Follow-up/Referrals: Alavro,Olayinka Savage MD [Primary Care Provider] -
[2024-07-21 17:49] LABS: Basophils Percent Auto 0.2 % (0.2-1.2); Eosinophils Absolute Auto 0.1 K/mm3 (0-0.3); Eosinophils Percent Auto 1.5 % (0-4.4); Hematocrit 40.2 % (42.0-52.0); Hemoglobin 13.3 g/dL (14.0-18.0); Immature Granulocyte Absolute 0.03 K/mm3 (0.00-0.031); Immature Granulocyte Percent A 0.4 % (0-0.5); Lymphocytes Absolute Auto 2.03 K/mm3 (0.9-3.2); Lymphocytes Percent Auto 25.1 % (18.3-44.2); Mean Corpuscular HGB Conc 33.1 g/dl (32-36); Mean Corpuscular Volume 90.7 fl (80-100); Mean Platelet Volume 10.5 fl (7.4-10.4); Monocytes Absolute Auto 0.5 K/mm3 (0.1-0.6); Monocytes Percent Auto 6.3 % (2.6-8.5); Neutrophils Absolute Auto 5.4 K/mm3 (1.3-6.7); Neutrophils Percent Auto 66.5 % (45.5-73.1); Platelet Count Result 223 k/mm3 (150-375); Red Blood Count 4.43 M/mm3 (4.6-6.20); Red Cell Distribution Width 13.7 % (11.5-14.5); White Blood Count 8.1 K/mm3 (4.5-10.0)
[2024-07-21 17:59] LABS: Alanine Aminotransferase 18 U/L (6-50); Albumin Level 4.2 g/dL (3.5-5.1); Alkaline Phosphatase 98 U/L (38-126); Anion Gap 9 mmol/L (4-12); Aspartate Amino Transferase 22 U/L (17-59); Bilirubin,Total 0.5 mg/dL (0.2-1.3); Blood Urea Nitrogen 15 mg/dL (9-20); Calcium 9.4 mg/dL (8.4-10.2); Carbon Dioxide 27 mmol/L (22-30); Chloride 105 mmol/L (98-107); Estimated CRCL calculation 100 ml/min; Estimated Glomerular Filt Rate > 60; Glucose 99 mg/dL (65-110); Potassium 3.8 mmol/L (3.4-5.0); Sodium 141 mmol/L (137-145)
[2024-07-21] MEDS: SODIUM CHLORIDE 0.9% IV 1,000 ML 999 ML IV CONT (18:04)
--- NOTE | 2024-07-21 18:30 | PC.NURSE ---
PT ACCEPTED TO [facility], UNKNOWN WHEN BED WILL BE MADE AVAILABLE
[2024-07-21 20:27] VITALS: BP 142/70; PULSE 78; RESP 15; O2SAT 100
== END 2024-07-21 20:31 | disposition short-term general hospital (02) ==
PROVIDERS: Emergency Provider Emergency Medicine; PCP Internal Medicine
DX: R51.9 Headache, unspecified (principal); T81.89XA Other complications of procedures, not elsewhere classified, initial encounter
CPT/HCPCS: 36415; 80053; 85025; 96360; 99285; J7030